=== PATIENT | female | born 1975 | race American Indian/Alaskan Native ===

== ENCOUNTER 2017-02-09 04:49 | Emergency (ER) | payer BC, OTHER ==
[2017-02-09 04:49] VITALS: BMI 35.9
[2017-02-09 05:04] VITALS: RESP 16; TEMP 98; O2SAT 98
[2017-02-09] MEDS ORDERED: Aspirin 325 mg EC Tablets PO STA (05:10)
--- NOTE | 2017-02-09 05:17 | C.PDOC ---
History Of Present Illness 42 year old obese black female presents to the ED c/o parasternal chest discomfort that is positionally and digitally reproducible. Patient also reports her pain radiates to her left arm and worsens with movement along with occasional SOB. 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 Patient denies headache, dizziness, diaphoresis, nausea, vomit, diarrhea, abdominal pain. Time Seen by Provider: 02/09/17 05:02 Chief Complaint (Nursing): Chest Pain History Per: Patient History/Exam Limitations: no limitations Onset/Duration Of Symptoms: Days Current Symptoms Are (Timing): Still Present Quality: "Pain" Associated Symptoms: Nausea Modifying Factors: None Exacerbating Factors: Movement Alleviating Factors: None Recent travel outside of the [place]: No Additional History Per: Patient Past Medical History Reviewed: Historical Data, Nursing Documentation, Vital Signs Vital Signs: Last Vital Signs Temp 98 F 02/09/17 04:58 Pulse 84 02/09/17 04:58 Resp 16 02/09/17 04:58 BP 153/94 H 02/09/17 04:58 Pulse Ox 98 02/09/17 05:20 - Medical History PMH: HTN Denies: Depression Surgical History: No Surg Hx Family History: States: Unknown Family Hx - Social History Hx Tobacco Use: No Hx Alcohol Use: No Hx Substance Use: No - Immunization History Hx Tetanus Toxoid Vaccination: No Hx Influenza Vaccination: No Hx Pneumococcal Vaccination: No Review Of Systems Constitutional: Negative for: Fever, Chills Cardiovascular: Positive for: Chest Pain. Negative for: Palpitations Respiratory: Positive for: Shortness of Breath. Negative for: Cough Gastrointestinal: Negative for: Nausea, Vomiting, Abdominal Pain Musculoskeletal: Positive for: Arm Pain Skin: Negative for: Rash Neurological: Negative for: Weakness, Numbness Physical Exam - Physical Exam Appears: Non-toxic, No Acute Distress, Other (obese black female) Skin: Normal Color, Warm, Dry Head: Atraumatic, Normacephalic Nose: No Discharge Oral Mucosa: Moist Neck: Normal ROM, Supple Chest: Symmetrical, Tenderness (digitally and positionally reproducible parasternal area) Cardiovascular: Rhythm Regular, No Murmur Respiratory: Normal Breath Sounds, No Rales, No Rhonchi, No Wheezing Gastrointestinal/Abdominal: Soft, No Tenderness, No Guarding, No Rebound Extremity: Normal ROM, No Pedal Edema, No Calf Tenderness, No Deformity, No Swelling Neurological/Psych: Oriented x3, Normal Speech Gait: Steady ED Course And Treatment - Laboratory Results Result Diagrams: 02/09/17 05:40 02/09/17 05:40 Lab Interpretation: Normal (trop neg.) ECG: Interpreted By Me, Viewed By Me ECG Rhythm: Sinus Rhythm, Nonspecific Changes ( lateral leads) Interpretation Of ECG: Flattened T waves in the lateral leads Rate From EC O2 Sat by Pulse Oximetry: 98 (On RA) Pulse Ox Interpretation: Normal - Radiology CXR: Interpreted by Me CXR Interpretation: Yes: No Acute Disease Progress Note: ice pack and motrin PO Reevaluation Time: 06:45 Reassessment Condition: Improved Medical Decision Making Medical Decision Making: Plan: * EKG * Blood work * CXR * Ecotrin 325 mg PO digitally and positionally reproducable parasternal discomfort no rash, exertion @ work (moving luggage) and normal EKG/labs/trop- c/w Costochondritis. Disposition Doctor Will See Patient In The: Office Counseled Patient/Family Regarding: Studies Performed, Diagnosis - Disposition Disposition: HOME/ ROUTINE Disposition Time: 06:46 Condition: GOOD Forms: [employer] ([place]) - Clinical Impression Clinical Impression: Chest wall discomfort - Scribe Statement The provider has reviewed the documentation as recorded by the Scribe Pierre Frias All medical record entries made by the Scribe were at my direction and personally dictated by me. I have reviewed the chart and agree that the record accurately reflects my personal performance of the history, physical exam, medical decision making, and the department course for this patient. I have also personally directed, reviewed, and agree with the discharge instructions and disposition.
[2017-02-09] MEDS ORDERED: Aspirin 325 mg EC Tablets PO ONE (05:22)
[2017-02-09 05:43] LABS: BASO # 0.1 K/uL (0.0-0.2); BASO % 0.8 % (0.0-2.0); EOS # 0.3 K/uL (0.0-0.7); EOS % 3.4 % (0.0-4.0); HEMOGLOBIN 13.3 g/dL (11.0-16.0); LYMPH # 2.3 K/uL (1.0-4.3); LYMPH % 30.4 % (20.0-40.0); MEAN CELL VOLUME 87.6 fL (81.0-99.0); MEAN CORPUSCULAR HEMOGLOBIN 30.3 pg (27.0-31.0); MEAN CORPUSCULAR HGB CONC 34.6 g/dL (33.0-37.0); MONO # 0.6 K/uL (0.0-0.8); MONO % 8.2 % (0.0-10.0); NEUT # 4.2 K/uL (1.8-7.0); NEUT % 57.2 % (50.0-75.0); RBC 4.4 Mil/uL (3.80-5.20); RED CELL DISTRIBUTION WIDTH 13.7 % (11.5-14.5); WHITE BLOOD COUNT 7.4 K/uL (4.8-10.8)
[2017-02-09 06:58] LABS: ALB/GLOB RATIO 1.2 (1.0-2.1); ALBUMIN 4.2 g/dL (3.5-5.0); ALT/SGPT 24 U/L (9-52); AST/SGOT 29 U/L (14-36); BLOOD UREA NITROGEN 12 mg/dL (7-17); CALCIUM 8.8 mg/dl (8.6-10.4); GFR AFRICAN-AMERICAN > 60; GFR NON-AFRICAN AMERICAN > 60
[2017-02-09] MEDS ORDERED: Potassium Chloride 10 mEq ER Tab PO STA (07:00)
[2017-02-09] MEDS ORDERED: Potassium Chloride 20 mEq ER Tab PO ONE (07:06)
[2017-02-09 07:09] VITALS: BP 150/90; PULSE 80
--- NOTE | 2017-02-09 08:46 | RAD ---
PROCEDURE: CHEST RADIOGRAPH, 1 VIEW HISTORY: cp COMPARISON: None available. FINDINGS: LUNGS: No evidence of focal infiltrate or consolidation in the lungs. PLEURA: No pneumothorax or pleural fluid seen. CARDIOVASCULAR: Normal. OSSEOUS STRUCTURES: Mild dextroscoliosis noted at the thoracic spine. VISUALIZED UPPER ABDOMEN: Normal. OTHER FINDINGS: None. IMPRESSION: No evidence of acute pulmonary disease.
--- NOTE | 2017-02-10 13:36 | CARD ---
APPROVED REPORT EKG Measurement Heart [id number] NM [id number] <Conclusion> Normal sinus rhythm Possible Left atrial enlargement Left ventricular hypertrophy ST & T wave abnormality, consider inferolateral ischemia Abnormal ECG
== END 2017-02-09 07:09 | disposition home or self-care (01) ==
LOC: C.ER 04:49
DX: R07.89 Other chest pain (principal); I10 Essential (primary) hypertension

== ENCOUNTER 2017-02-10 14:48 | Inpatient (IN) | payer OTHER ==
[2017-02-10 14:48] VITALS: BMI 35.9
[2017-02-10] MEDS ORDERED: Aspirin 325 mg EC Tablets PO STA (15:42)
--- NOTE | 2017-02-10 15:59 | C.PDOC ---
History Of Present Illness 42 y/o female with htn c/o sharp sternal chest pain, feels like contractions at times, that sometimes radiates to left arm, and to back, started on fri. pt sts worse with movement or in supine position and deep breath, pain better when leaning forward. Patient seen in ed yesterday for same, had blood work, ekg , cxr that were all negative and pt was discharged. Patient reports recent flu like symptoms that resolved. pt sts ibuprofen was not working for her, hasn't taken since yesterday. denies calf pain and swelling, no recent surgery, not on ocp (had tubes tied). Time Seen by Provider: 02/10/17 15:15 Chief Complaint (Nursing): Chest Pain History Per: Patient History/Exam Limitations: no limitations Onset/Duration Of Symptoms: Days Current Symptoms Are (Timing): Still Present Quality: Sharp, Squeezing (contractions) Associated Symptoms: Dyspnea. denies: Nausea, Diaphoresis, Syncope Exacerbating Factors: Exertion Alleviating Factors: Leaning Foreward Past Medical History Vital Signs: Last Vital Signs Temp 99.3 F 02/11/17 20:00 Pulse 88 02/11/17 21:48 Resp 28 H 02/11/17 21:48 BP 110/64 02/11/17 21:48 Pulse Ox 99 02/11/17 22:09 - Medical History PMH: HTN Denies: Depression Other PMH: dyslipidemia Family History: States: Unknown Family Hx - Social History Hx Tobacco Use: No Hx Alcohol Use: No Hx Substance Use: No - Immunization History Hx Tetanus Toxoid Vaccination: No Hx Influenza Vaccination: No Hx Pneumococcal Vaccination: No Review Of Systems Constitutional: Negative for: Fever, Chills Cardiovascular: Positive for: Chest Pain. Negative for: Palpitations Respiratory: Positive for: Shortness of Breath. Negative for: Cough Gastrointestinal: Negative for: Nausea, Vomiting, Abdominal Pain Skin: Negative for: Rash Neurological: Negative for: Weakness, Numbness Physical Exam - Physical Exam Additional Physical Exam Comments: Constitutional: uncomfortable Head: Normocephalic. Atraumatic. Eyes: PERRL. EOMI. ENT: Moist mucous membranes. Neck: Supple. Cardiovascular: Regular rate and rhythm. Chest: sternal Anterior chest wall tenderness Respiratory: shallow respirations. clear to auscultation GI: Soft. Nontender. Nondistended. Normoactive bowel sounds. No rebound. No guarding. Back: No CVA and no mid-line tenderness. Musculoskeletal: No tenderness or swelling of extremities. Skin: No rash. Neurologic: Alert, no focal deficit. ED Course And Treatment - Laboratory Results Result Diagrams: 02/11/17 07:40 02/11/17 07:40 ECG: Interpreted By Me, Viewed By Me ECG Rhythm: Sinus Rhythm Interpretation Of ECG: Possible left atrial enlargement. Left ventricular hypertrophy with repolarization abnormality. Compared to ECG done on 02/09/2017. patient flipped T waves and now lateral leads now upright Rate From EC (BPM ) O2 Sat by Pulse Oximetry: 99 (RA) Pulse Ox Interpretation: Normal Medical Decision Making Medical Decision Making: Progress: Blue top tube for D-Dimer hemolyzed twice and reordered Lovenox held unt ct chest dissection results evaluated [address] Valenzuela, will admit to his service. Disposition Discussed With .: Adrien Valenzuela - Disposition Disposition: HOSPITALIZED Disposition Time: 17:33 Condition: SERIOUS - Clinical Impression Clinical Impression: NSTEMI (non-ST elevated myocardial infarction), Hyponatremia - PA / IAP DISPLAYS ANALYST / Resident Statement MD/DO has reviewed & agrees with the documentation as recorded. - Scribe Statement The provider has reviewed the documentation as recorded by the Scribsammi Bhatti All medical record entries made by the Scribe were at my direction and personally dictated by me. I have reviewed the chart and agree that the record accurately reflects my personal performance of the history, physical exam, medical decision making, and the department course for this patient. I have also personally directed, reviewed, and agree with the discharge instructions and disposition. Decision To Admit - Pt Status Changed To: Hospital Disposition Of: Inpatient - Admit Certification Admit to Inpatient:: After my assessment, the patient will require hospitalization for at least two midnights. This is because of the severity of symptoms shown, intensity of services needed, and/or the medical risk in this patient being treated as an outpatient. - InPatient: Physician Admission Certification: I certify that this patient requires 2 or more midnights of care for the following reason:: cardiac work up - . Bed Request Type: Telemetry Admitting Physician: Adrien Valenzuela Patient Diagnosis: NSTEMI (non-ST elevated myocardial infarction), Hyponatremia
[2017-02-10 16:01] LABS: BASO # 0.1 K/uL (0.0-0.2); BASO % 0.9 % (0.0-2.0); EOS # 0.1 K/uL (0.0-0.7); HEMOGLOBIN 12.8 g/dL (11.0-16.0); LYMPH # 2.7 K/uL (1.0-4.3); MEAN CORPUSCULAR HEMOGLOBIN 30.2 pg (27.0-31.0); MEAN CORPUSCULAR HGB CONC 34.3 g/dL (33.0-37.0); MEAN PLATELET VOLUME 8.2 fL (7.2-11.7); MONO # 0.6 K/uL (0.0-0.8); MONO % 9.1 % (0.0-10.0); NEUT # 3.3 K/uL (1.8-7.0); RBC 4.25 Mil/uL (3.80-5.20); RED CELL DISTRIBUTION WIDTH 13.6 % (11.5-14.5); WHITE BLOOD COUNT 6.8 K/uL (4.8-10.8)
[2017-02-10 16:31] LABS: ALB/GLOB RATIO 1.2 (1.0-2.1); CALCIUM 8.3 mg/dl (8.6-10.4); GFR AFRICAN-AMERICAN > 60; GFR NON-AFRICAN AMERICAN > 60
[2017-02-10 16:37] LABS: ALT/SGPT 21 U/L (9-52); AST/SGOT 30 U/L (14-36); BLOOD UREA NITROGEN 13 mg/dL (7-17)
[2017-02-10] MEDS ORDERED: Enoxaparin 100 mg Syringe SC STA (16:49)
[2017-02-10] MEDS ORDERED: Iodixanol 320 MG/ML 100 ML BOTTLE IV ONE (18:48)
--- NOTE | 2017-02-10 20:12 | CT ---
EXAM: CT Chest With Intravenous Contrast CLINICAL HISTORY: 42 years old, female; Pain; Other: Chest radiating to back; Chest pain; Type not specified; Additional info: Cp radiating to back TECHNIQUE: Axial computed tomography images of the chest with intravenous contrast. All CT scans at this facility use one or more dose reduction techniques, viz.: automated exposure control; ma/kV adjustment per patient size (including targeted exams where dose is matched to indication; i.e. head); or iterative reconstruction technique. Coronal and sagittal reformatted images were created and reviewed. CONTRAST: 50 mL of VISIPAQUE 320 administered intravenously. COMPARISON: No relevant prior studies available. FINDINGS: Lungs: Hypoventilatory changes are noted in the dependent portion of both lungs. Pleural space: Unremarkable. No pneumothorax. No significant effusion. Heart: Unremarkable. No cardiomegaly. No significant pericardial effusion. Mediastinum: There is a small hiatal hernia Bones/joints: Straightening of the normal thoracic kyphosis. No acute fracture. No dislocation. Soft tissues: Unremarkable. Vasculature: Unremarkable. No thoracic aortic aneurysm. Lymph nodes: Unremarkable. No enlarged lymph nodes. IMPRESSION: 1. No acute findings. No evidence of aortic dissection 2. Small hiatal hernia 3. S-shaped scoliosis of the thoracolumbar spine EXAM: CT Abdomen and Pelvis With Intravenous Contrast EXAM DATE/TIME: Exam ordered 02/10/2017 6:28 PM CLINICAL HISTORY: 42 years old, female; Pain; Other: Chest radiating to back; Chest pain; Type not specified; Additional info: Cp radiating to back TECHNIQUE: Axial computed tomography images of the abdomen and pelvis with intravenous contrast. All CT scans at this facility use one or more dose reduction techniques, viz.: automated exposure control; ma/kV adjustment per patient size (including targeted exams where dose is matched to indication; i.e. head); or iterative reconstruction technique. Coronal and sagittal reformatted images were created and reviewed. CONTRAST: 50 mL of VISIPAQUE 320 administered intravenously. COMPARISON: No relevant prior studies available. FINDINGS: Lower thorax: There is a is a small hiatal hernia. ABDOMEN: Liver: The liver measures 17 cm in craniocaudal span. Gallbladder and bile ducts: Unremarkable. No calcified stones. No ductal dilation. Pancreas: Unremarkable. No mass. No ductal dilation. Spleen: Unremarkable. No splenomegaly. Adrenals: Unremarkable. No mass. Kidneys and ureters: Unremarkable. No solid mass. No hydronephrosis. Stomach and bowel: Unremarkable. No obstruction. No mucosal thickening. Appendix: No findings to suggest acute appendicitis. PELVIS: Bladder: Unremarkable. No mass. Reproductive: Unremarkable as visualized. ABDOMEN and PELVIS: Intraperitoneal space: Unremarkable. No free air. No significant fluid collection. Bones/joints: There is an S. shaped scoliosis of the thoracolumbar spine No acute fracture. No dislocation. Soft tissues: There is a small umbilical hernia containing fat. Vasculature: Unremarkable. No abdominal aortic aneurysm. Lymph nodes: Unremarkable. No enlarged lymph nodes. IMPRESSION: 1. Small hiatal hernia. 2. Hepatomegaly. 3. Small umbilical hernia containing fat.
--- NOTE | 2017-02-10 20:52 | CP.PCM.HP ---
Past Patient History - Infectious Disease Hx of Infectious Diseases: None - Tetanus Immunizations Tetanus Immunization: Unknown - Past Social History Smoking Status: Never Smoked - CARDIAC Hx Hypertension: Yes - PSYCHIATRIC Hx Depression: No Hx Substance Use: No - SURGICAL HISTORY Hx Surgeries: Yes Other/Comment: tubial ligation - ANESTHESIA Hx Anesthesia: Yes Hx Anesthesia Reactions: No Hx Malignant Hyperthermia: No Meds Allergies/Adverse Reactions: Allergies Allergy/AdvReac Type Severity Reaction Status Date / Time No Known Allergies Allergy Verified 02/10/17 15:29 Results - Vital Signs Recent Vital Signs: Last Vital Signs Temp 98.1 F 02/10/17 19:56 Pulse 88 02/10/17 20:19 Resp 22 02/10/17 20:19 BP 168/91 H 02/10/17 20:19 Pulse Ox 100 02/10/17 20:19 - Labs Result Diagrams: 02/10/17 15:57 02/10/17 15:57 Labs: Laboratory Results - last 24 hr 02/10/17 02/10/17 02/10/17 15:57 15:57 18:01 WBC 6.8 RBC 4.25 Hgb 12.8 Hct 37.4 MCV 88.0 MCH 30.2 MCHC 34.3 RDW 13.6 Plt Count 358 MPV 8.2 Neut % (Auto) 49.0 L Lymph % (Auto) 39.0 [place] % (Auto) 9.1 Eos % (Auto) 2.0 Baso % (Auto) 0.9 Neut # 3.3 Lymph # 2.7 [place] # 0.6 Eos # 0.1 Baso # 0.1 D-Dimer, Quantitative 247 H Sodium 129 L Potassium 3.3 L Chloride 98 Carbon Dioxide 25 Anion Gap 10 BUN 13 Creatinine 0.7 Est GFR ( Amer) > 60 Est GFR (Non-Af Amer) > 60 Random Glucose 117 H Calcium 8.3 L Total Bilirubin 0.9 AST 30 ALT 21 Alkaline Phosphatase 39 Troponin I 0.2040 H* Total Protein 7.4 Albumin 4.0 Globulin 3.4 Albumin/Globulin Ratio 1.2
[2017-02-10] MEDS ORDERED: Vitamins A & D Oint UD Foilpak TOP PRN (22:48)
[2017-02-10] MEDS ORDERED: Morphine 4 MG/ML VIAL IV ONE (23:41)
[2017-02-11 00:58] LABS: CK-MB 21.6 ng/mL (0.0-3.38); TROPONIN I 2.71 ng/mL (0.00-0.120)
[2017-02-11 08:05] LABS: BASO # 0.1 K/uL (0.0-0.2); BASO % 0.8 % (0.0-2.0); EOS # 0.1 K/uL (0.0-0.7); EOS % 1.9 % (0.0-4.0); HEMOGLOBIN 11.1 g/dL (11.0-16.0); LYMPH % 28.5 % (20.0-40.0); MEAN CELL VOLUME 88.6 fL (81.0-99.0); MEAN CORPUSCULAR HEMOGLOBIN 29.8 pg (27.0-31.0); MEAN CORPUSCULAR HGB CONC 33.6 g/dL (33.0-37.0); MEAN PLATELET VOLUME 7.8 fL (7.2-11.7); MONO # 0.7 K/uL (0.0-0.8); MONO % 9.8 % (0.0-10.0); NEUT # 4.2 K/uL (1.8-7.0); NRBC % 0.1 % (0.0-2.0); RBC 3.74 Mil/uL (3.80-5.20); RED CELL DISTRIBUTION WIDTH 13.8 % (11.5-14.5); WHITE BLOOD COUNT 7.1 K/uL (4.8-10.8)
[2017-02-11 08:21] LABS: ALB/GLOB RATIO 1.1 (1.0-2.1); ALBUMIN 3.2 g/dL (3.5-5.0); ALT/SGPT 32 U/L (9-52); AST/SGOT 60 U/L (14-36); BLOOD UREA NITROGEN 10 mg/dL (7-17); CALCIUM 7.3 mg/dl (8.6-10.4); GFR AFRICAN-AMERICAN > 60; GFR NON-AFRICAN AMERICAN > 60
--- NOTE | 2017-02-11 09:18 | RAD ---
HISTORY: chest pain COMPARISON: 02/09/2017 FINDINGS: LUNGS: The lungs are well inflated and clear. PLEURA: No significant pleural effusion identified, no pneumothorax apparent. CARDIOVASCULAR: Normal. OSSEOUS STRUCTURES: No significant abnormalities. VISUALIZED UPPER ABDOMEN: Normal. OTHER FINDINGS: None. IMPRESSION: No active pulmonary disease.
[2017-02-11 09:24] LABS: CK-MB 23.4 ng/mL (0.0-3.38)
[2017-02-11] MEDS ORDERED: Potassium Chloride 20 mEq ER Tab PO ONE (10:00)
[2017-02-11] MEDS ORDERED: Enoxaparin 60 mg Syringe SC SCH (10:00)
[2017-02-11] MEDS ORDERED: Enoxaparin 40 mg Syringe SC SCH (10:00)
--- NOTE | 2017-02-11 10:12 | CP.PCM.PN ---
Subjective - Date & Time of Evaluation Date of Evaluation: 02/11/17 Time of Evaluation: 10:01 - Subjective Subjective: PATIENT IS ALERT WITH FAMILY AT THE BEDSIDE COMPLAINING OF CHEST PAIN OF 7/10; DENIES SOB, NAUSEA OR VOMITING MANAGER SEARCH WAS NOTIFIED BY STAFF NURSE OF THE ELEVATED 3RD TROPONIN (7.46) STAT EKG, HEPARIN DRIP, ECHO, AND PTT, PT ORDER DR OAKLEY NOTIFIED AND REQUEST AN ICU TRANSFER PMD DR Rm GUSTAFSON WAS UPDATED ABOUT THE PATIENT CONDITION POTASSIUM WAS 3.0 MANAGER SEARCH ORDER KDUR 40MEQ PO GIVEN ONCE AND 20 MEQ IV WAS GIVEN PRIOR Objective - Vital Signs/Intake and Output Vital Signs (last 24 hours): Temp Pulse Resp BP Pulse Ox 98.1 F 67 20 110/74 96 02/11/17 08:19 02/11/17 08:19 02/11/17 08:19 02/11/17 08:19 02/11/17 08:19 - Medications Medications: Current Medications Aspirin (Aspirin) 325 mg PO DAILY JACQUES Clopidogrel Bisulfate (Plavix) 75 mg PO DAILY JACQUES Enoxaparin Sodium (Lovenox) 60 mg SC Q12 JACQUES Heparin Sodium/Sodium Chloride (Heparin 17943 Units/250ml 1/2 Normal Saline) 25 ,000 units in 250 mls @ 12.301 mls/hr IV .[id number] PRN; Protocol; 12 U/KG/HR PRN Reason: PROTOCOL Lisinopril (Zestril) 20 mg PO DAILY JACQUES Morphine Sulfate (Morphine) 2 mg IVP Q4 PRN PRN Reason: Pain, moderate (4-7) Last Admin: 02/11/17 07:13 Dose: 2 mg Pantoprazole Sodium (Protonix Inj) 40 mg IVP DAILY JACQUES Potassium Chloride (K-Dur 20 Meq Er Tab) 40 meq PO ONCE ONE Stop: 02/11/17 10:01 Vitamin A (Vitamin A & D Oint Ud Foilpak) 1 ea TOP Q6 PRN PRN Reason: Dry skin Last Admin: 02/10/17 23:22 Dose: 1 ea - Labs Labs: 02/11/17 07:40 02/11/17 07:40
[2017-02-11 10:59] LABS: INR 1.2; PROTHROMBIN TIME 13.4 SECONDS (9.7-12.2)
--- NOTE | 2017-02-11 12:29 | CP.PCM.CON ---
<Ann Marte - Last Filed: 02/11/17 12:34> History of Present Illness - History of Present Illness History of Present Illness: Critical Care Consult note for Dr. Schulz Patient is a 42 year old female w/ PMHx of HTN with complaint of intermittent sub-sternal sharp chest pain radiating to the left arm and back that began the evening of 02/07. She denies history of chest pain but reports pain was pleuritic and exertional and decreased with leaning forward. Patient took Motrin with minimal relief in pain. Patient came to ED 02/09 with blood work, XRAY and EKG that was negative and was diagnosed with costochondritis. Patient returned to the ED 02/10. Troponin was found to be of .2040, 2.71 and 7.46. CK-MB was 21.6 and 23.4. D-dimer was 247. EKG with possible left atrial enlargement. Left ventricular hypertrophy with re polarization abnormality. Patient admitted to ICU for NSTEMI. Patient states she had the flu a month ago and was given antibiotics and cough medication. Patient got a new tattoo a week ago at a familiar tattoo parlor she has visited before. Patient's last tattoo was a month ago. Social Hx: Denies tobacco, alcohol, illicit drug use, PSHx: Tubal ligation Medications: Lisinopril PMHx: HTN Family Hx: Mother with CHF Allergies: NKDA PCP: Dr. Singleton from [facility] Past Patient History - Infectious Disease Hx of Infectious Diseases: None - Tetanus Immunizations Tetanus Immunization: Unknown - Past Medical History & Family History Past Medical History?: Yes - Past Social History Smoking Status: Never Smoked - CARDIAC Hx Hypertension: Yes - MUSCULOSKELETAL/RHEUMATOLOGICAL Hx Falls: No - PSYCHIATRIC Hx Depression: No Hx Substance Use: No - SURGICAL HISTORY Hx Surgeries: Yes Hx Tubal Ligation: Yes Other/Comment: tubial ligation - ANESTHESIA Hx Anesthesia: Yes Hx Anesthesia Reactions: No Hx Malignant Hyperthermia: No Meds Allergies/Adverse Reactions: Allergies Allergy/AdvReac Type Severity Reaction Status Date / Time No Known Allergies Allergy Verified 02/10/17 15:29 - Medications Medications: Current Medications Aspirin (Aspirin) 325 mg PO DAILY [facility] Last Admin: 02/11/17 10:09 Dose: 325 mg Clopidogrel Bisulfate (Plavix) 75 mg PO DAILY [facility] Last Admin: 02/11/17 10:09 Dose: 75 mg Heparin Sodium/Sodium Chloride (Heparin 61355 Units/250ml 1/2 Normal Saline) 25 ,000 units in 250 mls @ 12.301 mls/hr IV .[id number] PRN; Protocol; 12 U/KG/HR PRN Reason: PROTOCOL Lisinopril (Zestril) 20 mg PO DAILY [facility] Last Admin: 02/11/17 10:09 Dose: 20 mg Morphine Sulfate (Morphine) 2 mg IVP Q4 PRN PRN Reason: Pain, moderate (4-7) Last Admin: 02/11/17 07:13 Dose: 2 mg Pantoprazole Sodium (Protonix Inj) 40 mg IVP DAILY [facility] Last Admin: 02/11/17 10:11 Dose: 40 mg Vitamin A (Vitamin A & D Oint Ud Foilpak) 1 ea TOP Q6 PRN PRN Reason: Dry skin Last Admin: 02/10/17 23:22 Dose: 1 ea Physical Exam - Constitutional Appears: Non-toxic - Head Exam Head Exam: NORMAL INSPECTION - Eye Exam Eye Exam: EOMI, Normal appearance - ENT Exam ENT Exam: Mucous Membranes Moist - Neck Exam Neck exam: Positive for: Full Rom, Normal Inspection. Negative for: Tenderness , Thyromegaly - Respiratory Exam Respiratory Exam: NORMAL BREATHING PATTERN. absent: Accessory Muscle Use - Cardiovascular Exam Cardiovascular Exam: REGULAR RHYTHM, +S1, +S2 Additional comments: patient has a murmur - GI/Abdominal Exam GI & Abdominal Exam: Distended, Soft. absent: Tenderness - Extremities Exam Extremities exam: Positive for: full ROM, pedal edema (2+ pitting edema at medial anterior tibial ) - Neurological Exam Neurological exam: Alert, CN II-XII Intact - Psychiatric Exam Psychiatric exam: Flat Affect - Skin Skin Exam: Dry, Intact, Warm Results - Vital Signs Recent Vital Signs: Last Vital Signs Temp 98.1 F 02/11/17 08:19 Pulse 67 02/11/17 08:19 Resp 20 02/11/17 08:19 BP 110/74 02/11/17 08:19 Pulse Ox 96 02/11/17 08:19 - Labs Result Diagrams: 02/11/17 07:40 02/11/17 07:40 Labs: Laboratory Results - last 24 hr 01/02/18 01/02/18 01/02/18 15:57 15:57 18:01 WBC 6.8 RBC 4.25 Hgb 12.8 Hct 37.4 MCV 88.0 MCH 30.2 MCHC 34.3 RDW 13.6 Plt Count 358 MPV 8.2 Neut % (Auto) 49.0 L Lymph % (Auto) 39.0 [place] % (Auto) 9.1 Eos % (Auto) 2.0 Baso % (Auto) 0.9 Neut # 3.3 Lymph # 2.7 [place] # 0.6 Eos # 0.1 Baso # 0.1 PT INR D-Dimer, Quantitative 247 H Sodium 129 L Potassium 3.3 L Chloride 98 Carbon Dioxide 25 Anion Gap 10 BUN 13 Creatinine 0.7 Est GFR ( Amer) > 60 Est GFR (Non-Af Amer) > 60 Random Glucose 117 H Calcium 8.3 L Total Bilirubin 0.9 AST 30 ALT 21 Alkaline Phosphatase 39 Total Creatine Kinase CK-MB (Mass) Troponin I 0.2040 H* Total Protein 7.4 Albumin 4.0 Globulin 3.4 Albumin/Globulin Ratio 1.2 02/11/17 02/11/17 02/11/17 00:22 07:40 07:40 WBC 7.1 RBC 3.74 L Hgb 11.1 Hct 33.1 L MCV 88.6 MCH 29.8 MCHC 33.6 RDW 13.8 Plt Count 290 MPV 7.8 Neut % (Auto) 59.0 Lymph % (Auto) 28.5 [place] % (Auto) 9.8 Eos % (Auto) 1.9 Baso % (Auto) 0.8 Neut # 4.2 Lymph # 2.0 [place] # 0.7 Eos # 0.1 Baso # 0.1 PT INR D-Dimer, Quantitative Sodium 132 Potassium 3.0 L Chloride 101 Carbon Dioxide 28 Anion Gap 7 L BUN 10 Creatinine 0.6 L Est GFR ( Amer) > 60 Est GFR (Non-Af Amer) > 60 Random Glucose 92 Calcium 7.3 L Total Bilirubin 0.7 AST 60 H D ALT 32 Alkaline Phosphatase 35 L Total Creatine Kinase 456 H 561 H CK-MB (Mass) 21.6 H 23.4 H Troponin I 2.7100 H* 7.4600 H* Total Protein 6.1 L Albumin 3.2 L Globulin 2.9 Albumin/Globulin Ratio 1.1 02/11/17 10:50 WBC RBC Hgb Hct MCV MCH MCHC RDW Plt Count MPV Neut % (Auto) Lymph % (Auto) [place] % (Auto) Eos % (Auto) Baso % (Auto) Neut # Lymph # [place] # Eos # Baso # PT 13.4 H INR 1.2 D-Dimer, Quantitative Sodium Potassium Chloride Carbon Dioxide Anion Gap BUN Creatinine Est GFR ( Amer) Est GFR (Non-Af Amer) Random Glucose Calcium Total Bilirubin AST ALT Alkaline Phosphatase Total Creatine Kinase CK-MB (Mass) Troponin I Total Protein Albumin Globulin Albumin/Globulin Ratio Assessment & Plan - Assessment and Plan (Free Text) Assessment: 42F with PMH of HTN presents with chest pain, was found to have elevated troponin I Neuro Pain: Morphine 2mg IVP Q4H PRN Cardio: elevated troponin I 02/10/17 15:57 0.2040 02/11/17 00:22 2.7100 02/11/17 07:40 7.4600 02/10/17 18:01 d-dimer 247 CT dissection negative for aneurysm negative for PE EKG EKG f/u Echo ASA 325mg PO QD Plavix 75mg PO QD Lovenox 60mg SC Q12H, discontinued Heparin Drip 12 u/kg/hr Lisinopril 20mg POQD Cardio Consult: Dr. Cope Pulm / CXR MSK Dry skin Vitamin A&D ointment Top Q6H PRN Prophylaxis: Protonix 40mg IVP QD Lovenox 60mg SC Q12H, discontinued Heparin Drip 12 u/kg/hr - Date & Time Date: 02/11/17 Time: 12:37 <Conrad Schulz - Last Filed: 02/11/17 16:38> Meds - Medications Medications: Current Medications Aspirin (Aspirin) 325 mg PO DAILY [facility] Last Admin: 02/11/17 10:09 Dose: 325 mg Clopidogrel Bisulfate (Plavix) 75 mg PO DAILY [facility] Last Admin: 02/11/17 10:09 Dose: 75 mg Heparin Sodium/Sodium Chloride (Heparin 40013 Units/250ml 1/2 Normal Saline) 25 ,000 units in 250 mls @ 12.301 mls/hr IV .[id number] PRN; Protocol; 12 U/KG/HR PRN Reason: PROTOCOL Last Admin: 02/11/17 13:27 Dose: 12 u/kg/hr, 12.301 mls/hr Lisinopril (Zestril) 20 mg PO DAILY [facility] Last Admin: 02/11/17 10:09 Dose: 20 mg Morphine Sulfate (Morphine) 2 mg IVP Q4 PRN PRN Reason: Pain, moderate (4-7) Last Admin: 02/11/17 15:13 Dose: 2 mg Pantoprazole Sodium (Protonix Inj) 40 mg IVP DAILY [facility] Last Admin: 02/11/17 10:11 Dose: 40 mg Vitamin A (Vitamin A & D Oint Ud Foilpak) 1 ea TOP Q6 PRN PRN Reason: Dry skin Last Admin: 02/10/17 23:22 Dose: 1 ea Results - Vital Signs Recent Vital Signs: Last Vital Signs Temp 99.0 F 02/11/17 16:00 Pulse 86 02/11/17 16:00 Resp 25 H 02/11/17 16:00 BP 114/57 L 02/11/17 15:45 Pulse Ox 100 02/11/17 16:00 - Labs Result Diagrams: 02/11/17 07:40 02/11/17 07:40 Labs: Laboratory Results - last 24 hr 02/10/17 02/10/17 02/11/17 15:57 18:01 00:22 WBC RBC Hgb Hct MCV MCH MCHC RDW Plt Count MPV Neut % (Auto) Lymph % (Auto) [place] % (Auto) Eos % (Auto) Baso % (Auto) Neut # Lymph # [place] # Eos # Baso # PT INR D-Dimer, Quantitative 247 H Sodium 129 L Potassium 3.3 L Chloride 98 Carbon Dioxide 25 Anion Gap 10 BUN 13 Creatinine Est GFR ( Amer) Est GFR (Non-Af Amer) Random Glucose Calcium Total Bilirubin AST 30 ALT 21 Alkaline Phosphatase 39 Total Creatine Kinase 456 H CK-MB (Mass) 21.6 H Troponin I 0.2040 H* 2.7100 H* Total Protein Albumin Globulin Albumin/Globulin Ratio 02/11/17 02/11/17 02/11/17 07:40 07:40 10:50 WBC 7.1 RBC 3.74 L Hgb 11.1 Hct 33.1 L MCV 88.6 MCH 29.8 MCHC 33.6 RDW 13.8 Plt Count 290 MPV 7.8 Neut % (Auto) 59.0 Lymph % (Auto) 28.5 [place] % (Auto) 9.8 Eos % (Auto) 1.9 Baso % (Auto) 0.8 Neut # 4.2 Lymph # 2.0 [place] # 0.7 Eos # 0.1 Baso # 0.1 PT 13.4 H INR 1.2 D-Dimer, Quantitative Sodium 132 Potassium 3.0 L Chloride 101 Carbon Dioxide 28 Anion Gap 7 L BUN 10 Creatinine 0.6 L Est GFR ( Amer) > 60 Est GFR (Non-Af Amer) > 60 Random Glucose 92 Calcium 7.3 L Total Bilirubin 0.7 AST 60 H D ALT 32 Alkaline Phosphatase 35 L Total Creatine Kinase 561 H CK-MB (Mass) 23.4 H Troponin I 7.4600 H* Total Protein 6.1 L Albumin 3.2 L Globulin 2.9 Albumin/Globulin Ratio 1.1 Attending/Attestation - Attestation I have personally seen and examined this patient.: Yes I have fully participated in the care of the patient.: Yes I have reviewed all pertinent clinical information: Yes Notes (Text): 02/11/17 16:35 patient seen and examined in the intensive care unit. Case discussed with house staff in the morning. 42-year-old female admitted for chest pain and elevated troponins Possible cardiac cath tomorrow Continue IV heparin, Plavix, aspirin Echocardiogram Seen by cardiology
[2017-02-11] MEDS: Heparin25000 units/250ml 1/2NS 25,000 UNITS/250 ML BAG IV PRN (13:27)
[2017-02-11] MEDS ORDERED: Sodium Chloride 0.9% 1,000 ML IV SCH (16:45)
[2017-02-11 17:52] LABS: CK-MB 14.6 ng/mL (0.0-3.38)
[2017-02-11 17:54] LABS: TROPONIN I 4.65 ng/mL (0.00-0.120)
--- NOTE | 2017-02-11 19:10 | CP.PCM.CON ---
History of Present Illness - History of Present Illness History of Present Illness: I was asked to see patient by Dr Rm Valenzuela. Patient is a 42 year old female with PMH HTN, hypercholesterolemia who presents with chest pain. Symptoms have been intermittent since 4 days go, and is described as cramping substernal chest pressure. The patient states symptoms are worse with exertion and improve with rest. She presented with inital cardiac enzyme negative but subsequently became positive. Patient was transferred to ICU with intermittent chest pain and troponin of 7. The patient states pain is improved. Family is present at the bedside. Review of Systems - Constitutional Constitutional: absent: As Per HPI, Anorexia, Chills, Daytime Sleepiness, Excessive Sweating, Fatigue, Fever, Frequent Falls, Headache, Increased Appetite , Lethargy, Malaise, Night Sweats, Snoring, Sleep Apnea, Weight Gain, Weight Loss, Weakness, Other - EENT Eyes: absent: As Per HPI, Blind Spots, Blurred Vision, Change in Vision, Decreased Night Vision, Diplopia, Discharge, Dry Eye, Exophthalmos, Floaters, Irritation, Itchy Eyes, Loss of Peripheral Vision, Pain, Photophobia, Requires Corrective Lenses, Sees Flashes, Spots in Vision, Tunnel Vision, Other Visual Disturbances, Loss of Vision, Other Ears: absent: As Per HPI, Decreased Hearing, Ear Discharge, Ear Pain, Tinnitus, Abnormal Hearing, Disequilibrium, Dizziness, Other Nose/Mouth/Throat: absent: As Per HPI, Epistaxis, Nasal Congestion, Nasal Discharge, Nasal Obstruction, Nasal Trauma, Nose Pain, Post Nasal Drip, Sinus Pain, Sinus Pressure, Bleeding Gums, Change in Voice, Dental Pain, Dry Mouth, Dysphagia, Halitosis, Hoarsness, Lip Swelling, Mouth Lesions, Mouth Pain, Odynophagia, Sore Throat, Throat Swelling, Tongue Swelling, Facial Pain, Neck Pain, Neck Mass, Other - Breasts Breasts: absent: As Per HPI, Change in Shape, Mass, Pain, Nipple Discharge, Nipple Inversion, Skin Changes, Swelling, Other - Cardiovascular Cardiovascular: Chest Pain, Dyspnea - Respiratory Respiratory: Dyspnea - Gastrointestinal Gastrointestinal: absent: As Per HPI, Abdominal Pain, Belching, Bloating, Change in Bowel Habits, Change in Stool Character, Coffee Ground Emesis, Constipation, Cramping, Diarrhea, Dyspepsia, Dysphagia, Early Satiety, Excessive Flatus, Fecal Incontinence, Heartburn, Hematemesis, Hematochezia, Loose Stools, Melena, Nausea, Odynophagia, Temesmus, Vomiting, Other - Genitourinary Genitourinary: absent: As Per HPI, Change in Urinary Stream, Difficulty Urinating, Dysuria, Flank Pain, Hematuria, Pyuria, Nocturia, Urinary Incontinence, Urinary Frequency, Urinary Hesitance, Urinary Urgency, Voiding Freq/Small Amts, Freq UTI, Hx Renal/Bladder Calculi, Hx /Renal Surgery, Bladder Distension, Other - Musculoskeletal Musculoskeletal: absent: As Per HPI, Abnormal Gait, Arthralgias, Atrophy, Back Pain, Deformity, Joint Swelling, Limited Range of Motion, Loss of Height, Muscle Cramps, Muscle Weakness, Myalgias, Neck Pain, Numbness, Radiating Pain into Limb, Stiffness, Tingling, Other - Integumentary Integumentary: absent: As Per HPI, Acne, Alopecia, Bleeding Lesions, Change in Hair, Change in Nails, Change in Pigmentation, Changing Lesions, Dry Skin, Erythema, Furuncle, Hirsutism, Lesions, New Lesions, Non-Healing Lesions, Photosensitivity, Pruritus, Rash, Skin Pain, Skin Ulcer, Sores, Striae, Swelling , Unusual Bruising, Wounds, Jaundice, Other - Neurological Neurological: absent: As Per HPI, Abnormal Gait, Abnormal Hearing, Abnormal Movements, Abnormal Speech, Behavioral Changes, Burning Sensations, Confusion, Convulsions, Disequilibrium, Dizziness, Numbness, Focal Weakness, Frequent Falls , Headaches, Lack of Coordination, Loss of Vision, Memory Loss, Paresthesias, Radicular Pain, Restless Legs, Sensory Deficit, Syncope, Tingling, Tremor, Vertigo, Weakness, Other Visual Disturbances, Other - Psychiatric Psychiatric: absent: As Per HPI, Abnormal Sleep Pattern, Anhedonia, Anxiety, Auditory Hallucinations, Behavioral Changes, Change in Appetite, Change in Libido, Confusion, Depression, Difficulty Concentrating, Hallucinations, Homicidal Ideation, Hopelessness, Irritability, Memory Loss, Mood Swings, Panic Attacks, Paranoia, Suicidal Ideation, Visual Hallucinations, Tactile Hallucinations, Other - Endocrine Endocrine: absent: As Per HPI, Change in Body Appearance, Change in Libido, Cold Intolorance, Deepening of Voice, Excessive Sweating, Fatigue, Flushing, Heat Intolorance, Increase in Ring/Shoe/Hat Size, Palpitations, Polydipsia, Polyphagia, Polyuria, Other - Hematologic/Lymphatic Hematologic: absent: As Per HPI, Easy Bleeding, Easy Bruising, Lymphadenopathy, Other Past Patient History - Infectious Disease Hx of Infectious Diseases: None - Tetanus Immunizations Tetanus Immunization: Unknown - Past Medical History & Family History Past Medical History?: Yes - Past Social History Smoking Status: Never Smoked - CARDIAC Hx Hypertension: Yes - MUSCULOSKELETAL/RHEUMATOLOGICAL Hx Falls: No - PSYCHIATRIC Hx Depression: No Hx Substance Use: No - SURGICAL HISTORY Hx Surgeries: Yes Hx Tubal Ligation: Yes Other/Comment: tubial ligation - ANESTHESIA Hx Anesthesia: Yes Hx Anesthesia Reactions: No Hx Malignant Hyperthermia: No Meds Allergies/Adverse Reactions: Allergies Allergy/AdvReac Type Severity Reaction Status Date / Time No Known Allergies Allergy Verified 02/10/17 15:29 - Medications Medications: Current Medications Aspirin (Aspirin) 325 mg PO DAILY [facility] Last Admin: 02/11/17 10:09 Dose: 325 mg Clopidogrel Bisulfate (Plavix) 75 mg PO DAILY [facility] Last Admin: 02/11/17 10:09 Dose: 75 mg Heparin Sodium/Sodium Chloride (Heparin 17286 Units/250ml 1/2 Normal Saline) 25 ,000 units in 250 mls @ 12.301 mls/hr IV .[id number] PRN; Protocol; 12 U/KG/HR PRN Reason: PROTOCOL Last Admin: 02/11/17 13:27 Dose: 12 u/kg/hr, 12.301 mls/hr Lisinopril (Zestril) 20 mg PO DAILY [facility] Last Admin: 02/11/17 10:09 Dose: 20 mg Morphine Sulfate (Morphine) 2 mg IVP Q4 PRN PRN Reason: Pain, moderate (4-7) Last Admin: 02/11/17 15:13 Dose: 2 mg Pantoprazole Sodium (Protonix Inj) 40 mg IVP DAILY [facility] Last Admin: 02/11/17 10:11 Dose: 40 mg Vitamin A (Vitamin A & D Oint Ud Foilpak) 1 ea TOP Q6 PRN PRN Reason: Dry skin Last Admin: 02/10/17 23:22 Dose: 1 ea Physical Exam - Constitutional Appears: Non-toxic - Head Exam Head Exam: NORMAL INSPECTION - Eye Exam Eye Exam: Normal appearance - ENT Exam ENT Exam: Mucous Membranes Moist - Neck Exam Neck exam: Positive for: Full Rom - Respiratory Exam Respiratory Exam: NORMAL BREATHING PATTERN - Cardiovascular Exam Cardiovascular Exam: REGULAR RHYTHM - GI/Abdominal Exam GI & Abdominal Exam: Normal Bowel Sounds - Rectal Exam Rectal Exam: Deferred - Extremities Exam Extremities exam: Negative for: pedal edema - Back Exam Back exam: NORMAL INSPECTION - Neurological Exam Neurological exam: Alert, Oriented x3 - Psychiatric Exam Psychiatric exam: Normal Affect - Skin Skin Exam: Normal Color Results - Vital Signs Recent Vital Signs: Last Vital Signs Temp 99.0 F 02/11/17 16:00 Pulse 84 02/11/17 17:40 Resp 28 H 02/11/17 17:40 BP 119/73 02/11/17 16:45 Pulse Ox 100 02/11/17 17:40 - Labs Result Diagrams: 02/11/17 07:40 02/11/17 07:40 Labs: Laboratory Results - last 24 hr 02/11/17 02/11/17 02/11/17 00:22 07:40 07:40 WBC 7.1 RBC 3.74 L Hgb 11.1 Hct 33.1 L MCV 88.6 MCH 29.8 MCHC 33.6 RDW 13.8 Plt Count 290 MPV 7.8 Neut % (Auto) 59.0 Lymph % (Auto) 28.5 [place] % (Auto) 9.8 Eos % (Auto) 1.9 Baso % (Auto) 0.8 Neut # 4.2 Lymph # 2.0 [place] # 0.7 Eos # 0.1 Baso # 0.1 PT INR Sodium 132 Potassium 3.0 L Chloride 101 Carbon Dioxide 28 Anion Gap 7 L BUN 10 Creatinine 0.6 L Est GFR ( Amer) > 60 Est GFR (Non-Af Amer) > 60 Random Glucose 92 Hemoglobin A1c Calcium 7.3 L Total Bilirubin 0.7 AST 60 H D ALT 32 Alkaline Phosphatase 35 L Total Creatine Kinase 456 H 561 H CK-MB (Mass) 21.6 H 23.4 H Troponin I 2.7100 H* 7.4600 H* Total Protein 6.1 L Albumin 3.2 L Globulin 2.9 Albumin/Globulin Ratio 1.1 Triglycerides Cholesterol LDL Cholesterol Direct HDL Cholesterol 02/11/17 02/11/17 02/11/17 10:50 17:18 17:18 WBC RBC Hgb Hct MCV MCH MCHC RDW Plt Count MPV Neut % (Auto) Lymph % (Auto) [place] % (Auto) Eos % (Auto) Baso % (Auto) Neut # Lymph # [place] # Eos # Baso # PT 13.4 H INR 1.2 Sodium Potassium Chloride Carbon Dioxide Anion Gap BUN Creatinine Est GFR ( Amer) Est GFR (Non-Af Amer) Random Glucose Hemoglobin A1c 5.8 Calcium Total Bilirubin AST ALT Alkaline Phosphatase Total Creatine Kinase 426 H CK-MB (Mass) 14.6 H Troponin I 4.6500 H* Total Protein Albumin Globulin Albumin/Globulin Ratio Triglycerides 138 Cholesterol 177 LDL Cholesterol Direct 119 HDL Cholesterol 37 - EKG Data EKG Interpreted by: Myself EKG shows normal: Sinus rhythm Assessment & Plan (1) NSTEMI (non-ST elevated myocardial infarction) Assessment and Plan: patient is on heparin drip. She will require cardiac cathterization for further management. Pain has improved. I have discussed risks and benefits with the patient and family. She perfers transfer for cardiac cathterization given likelihood of needing coronary intervention. NPO after midnight and will transfer in am. maintain ASA therapy. Status: Acute (2) HTN (hypertension) Assessment and Plan: blood pressure control Status: Acute
--- NOTE | 2017-02-11 19:31 | CP.PCM.PN ---
Subjective - Date & Time of Evaluation Date of Evaluation: 02/11/17 Time of Evaluation: 14:40 - Subjective Subjective: clinically same Objective - Vital Signs/Intake and Output Vital Signs (last 24 hours): Temp Pulse Resp BP Pulse Ox 99.0 F 84 28 H 119/73 100 02/11/17 16:00 02/11/17 17:40 02/11/17 17:40 02/11/17 16:45 02/11/17 17:40 Intake and Output: 02/11/17 02/12/17 18:59 06:59 Intake Total 861.5 Output Total 500 Balance 361.5 - Medications Medications: Current Medications Aspirin (Ecotrin) 81 [facility] Clopidogrel Bisulfate (Plavix) 75 mg PO DAILY [facility] Last Admin: 02/11/17 10:09 Dose: 75 mg Famotidine (Pepcid) 20 mg PO BID [facility] Heparin Sodium/Sodium Chloride (Heparin 25457 Units/250ml 1/2 Normal Saline) 25 ,000 units in 250 mls @ 12.301 mls/hr IV .[id number] PRN; Protocol; 12 U/KG/HR PRN Reason: PROTOCOL Last Admin: 02/11/17 13:27 Dose: 12 u/kg/hr, 12.301 mls/hr Lisinopril (Zestril) 20 mg PO DAILY [facility] Last Admin: 02/11/17 10:09 Dose: 20 mg Morphine Sulfate (Morphine) 2 mg IVP Q4 PRN PRN Reason: Pain, moderate (4-7) Last Admin: 02/11/17 15:13 Dose: 2 mg Rosuvastatin Calcium (Crestor) 10 mg PO [facility] Vitamin A (Vitamin A & D Oint Ud Foilpak) 1 ea TOP Q6 PRN PRN Reason: Dry skin Last Admin: 02/10/17 23:22 Dose: 1 ea - Labs Labs: 02/11/17 07:40 02/11/17 07:40 PT 13.4 SECONDS (9.7-12.2) H 02/11/17 10:50 INR 1.2 02/11/17 10:50 - Constitutional Appears: Well - Head Exam Head Exam: ATRAUMATIC, NORMAL INSPECTION, NORMOCEPHALIC - Eye Exam Eye Exam: EOMI, Normal appearance, PERRL Pupil Exam: NORMAL ACCOMODATION, PERRL - ENT Exam ENT Exam: Mucous Membranes Moist, Normal Exam - Neck Exam Neck Exam: Full ROM, Normal Inspection. absent: Lymphadenopathy - Respiratory Exam Respiratory Exam: Decreased Breath Sounds - Cardiovascular Exam Cardiovascular Exam: +S1, +S2 - GI/Abdominal Exam GI & Abdominal Exam: Soft, Diminished Bowel Sounds - Rectal Exam Rectal Exam: Deferred
[2017-02-12 06:37] LABS: BASO # 0.1 K/uL (0.0-0.2); BASO % 0.9 % (0.0-2.0); EOS # 0.3 K/uL (0.0-0.7); HEMOGLOBIN 11.6 g/dL (11.0-16.0); LYMPH # 2.2 K/uL (1.0-4.3); LYMPH % 34.6 % (20.0-40.0); MEAN CELL VOLUME 89.6 fL (81.0-99.0); MEAN CORPUSCULAR HEMOGLOBIN 30.2 pg (27.0-31.0); MEAN CORPUSCULAR HGB CONC 33.7 g/dL (33.0-37.0); MEAN PLATELET VOLUME 8.1 fL (7.2-11.7); MONO # 0.5 K/uL (0.0-0.8); MONO % 7.8 % (0.0-10.0); NEUT # 3.4 K/uL (1.8-7.0); NEUT % 52.7 % (50.0-75.0); NRBC % 0.1 % (0.0-2.0); RBC 3.83 Mil/uL (3.80-5.20); RED CELL DISTRIBUTION WIDTH 13.7 % (11.5-14.5); WHITE BLOOD COUNT 6.4 K/uL (4.8-10.8)
[2017-02-12 06:51] LABS: ALB/GLOB RATIO 1.1 (1.0-2.1); ALBUMIN 3.3 g/dL (3.5-5.0); ALT/SGPT 27 U/L (9-52); AST/SGOT 40 U/L (14-36); BLOOD UREA NITROGEN 11 mg/dL (7-17); CALCIUM 7.7 mg/dl (8.6-10.4); GFR AFRICAN-AMERICAN > 60; GFR NON-AFRICAN AMERICAN > 60; MAGNESIUM 1.8 mg/dL (1.6-2.3)
[2017-02-12 07:01] LABS: CK-MB 5.25 ng/mL (0.0-3.38)
--- NOTE | 2017-02-12 07:37 | CP.CCUPN ---
<EsutardoAnn - Last Filed: 02/12/17 11:24> CCU Subjective - Physician Review Subjective (Free Text): 02/12/17 07:[address] Corrales Patient seen and examined at bedside to be transferred for cardiac cath in the morning per Dr. Cope. Patient denies fever, chills, shortness of breath. Patient admits to discomfort in her chest. Patient's troponin's are downtrending. Patient continues to have chest pain, not relieved with morphine. Patient sent to [facility] [place] 11:[address] Cope 02/12/17 11:22 Critical Care Time Spent (in minutes): 35 CCU Objective - Vital Signs / Intake & Output Vital Signs (Last 4 hours): Vital Signs Pulse Resp BP Pulse Ox 02/12/17 06:00 71 18 100 02/12/17 05:45 66 20 113/70 100 02/12/17 05:00 79 21 100 02/12/17 04:45 82 21 123/74 100 02/12/17 04:00 66 17 100 02/12/17 03:45 73 20 111/72 100 Intake and Output (Last 8hrs): Intake & Output 02/11/17 02/12/17 02/12/17 22:59 06:59 14:59 Intake Total 498.4 198.4 Output Total 0 600 Balance 498.4 -401.6 Intake: Intake, IV Amount 98.4 98.4 Right Antecubital 98.4 98.4 Oral 400 100 Output: Urine 0 600 Urine, Voided 0 600 Other: # Bowel Movements 0 - Physical Exam Head: Positive for: Atraumatic, Normocephalic Extroacular Muscles: Positive for: EOMI Mouth: Positive for: Moist Mucous Membranes Abdomen: Positive for: Distention, Normal Bowel Sounds. Negative for: Tenderness - Medications Active Medications: Active Medications Generic Name Dose Route Start Last Admin Trade Name Freq PRN Reason Stop Dose Admin Aspirin 81 mg 02/11/17 19:14 Ecotrin PO DAILY [facility] Clopidogrel Bisulfate 75 mg 02/11/17 10:00 02/11/17 10:09 Plavix PO 75 mg DAILY [facility] Administration Famotidine 20 mg 02/12/17 10:00 Pepcid PO BID [facility] Heparin Sodium/Sodium Chloride 25,000 units in 250 mls @ 12.301 mls/hr 10:00 02/11/17 13:27 Heparin 87751 Units/250ml 1/2 Normal Saline IV 12 u/kg/hr .[id number] PRN 12.301 mls/hr PROTOCOL Administration Protocol 12 U/KG/HR Lisinopril 20 mg 02/11/17 10:00 02/11/17 10:09 Zestril PO 20 mg DAILY [facility] Administration Morphine Sulfate 2 mg 02/10/17 20:03 02/11/17 22:15 Morphine IVP 2 mg Q4 PRN Administration Pain, moderate (4-7) Rosuvastatin Calcium 10 mg 02/11/17 22:00 02/11/17 22:20 Crestor PO 10 mg HS JACQUES Administration Vitamin A 1 ea 02/10/17 22:48 02/10/17 23:22 Vitamin A & D Oint Ud Foilpak TOP 1 ea Q6 PRN Administration Dry skin - Patient Studies Lab Studies: Lab Studies 02/12/17 02/12/17 02/11/17 Range/Units 06:20 06:18 19:52 WBC 6.4 (4.8-10.8) K/uL RBC 3.83 (3.80-5.20) Mil/uL Hgb 11.6 (11.0-16.0) g/dL Hct 34.4 (34.0-47.0) % MCV 89.6 (81.0-99.0) fL MCH 30.2 (27.0-31.0) pg MCHC 33.7 (33.0-37.0) g/dL RDW 13.7 (11.5-14.5) % Plt Count 298 (130-400) K/uL MPV 8.1 (7.2-11.7) fL Neut % (Auto) 52.7 (50.0-75.0) % Lymph % (Auto) 34.6 (20.0-40.0) % [place] % (Auto) 7.8 (0.0-10.0) % Eos % (Auto) 4.0 (0.0-4.0) % Baso % (Auto) 0.9 (0.0-2.0) % Neut # 3.4 (1.8-7.0) K/uL Lymph # 2.2 (1.0-4.3) K/uL [place] # 0.5 (0.0-0.8) K/uL Eos # 0.3 (0.0-0.7) K/uL Baso # 0.1 (0.0-0.2) K/uL PT (9.7-12.2) SECONDS INR APTT 44 H (21-34) SECONDS Sodium 131 L (132-148) mmol/L Potassium 3.7 (3.6-5.2) mmol/L Chloride 103 (98-107) mmol/L Carbon Dioxide 25 (22-30) mmol/L Anion Gap 7 L (10-20) BUN 11 (7-17) mg/dL Creatinine 0.6 L (0.7-1.2) mg/dL Est GFR ( Amer) > 60 Est GFR (Non-Af Amer) > 60 Random Glucose 87 (65-105) mg/dL Hemoglobin A1c (4.2-6.5) % Calcium 7.7 L (8.6-10.4) mg/dl Phosphorus 3.0 (2.5-4.5) mg/dL Magnesium 1.8 (1.6-2.3) mg/dL Total Bilirubin 0.6 (0.2-1.3) mg/dL AST 40 H D (14-36) U/L ALT 27 (9-52) U/L Alkaline Phosphatase 38 (38-126) U/L Total Creatine Kinase 279 H (30-135) U/L CK-MB (Mass) 5.25 H (0.0-3.38) ng/mL Troponin I 4.0100 H* (0.00-0.120) ng/mL Total Protein 6.4 (6.3-8.3) g/dL Albumin 3.3 L (3.5-5.0) g/dL Globulin 3.1 (2.2-3.9) gm/dL Albumin/Globulin Ratio 1.1 (1.0-2.1) Triglycerides (0-149) mg/dL Cholesterol (0-199) mg/dL LDL Cholesterol Direct (0-129) mg/dL HDL Cholesterol (30-70) mg/dL 02/11/17 02/11/17 02/11/17 Range/Units 17:18 17:18 10:50 WBC (4.8-10.8) K/uL RBC (3.80-5.20) Mil/uL Hgb (11.0-16.0) g/dL Hct (34.0-47.0) % MCV (81.0-99.0) fL MCH (27.0-31.0) pg MCHC (33.0-37.0) g/dL RDW (11.5-14.5) % Plt Count (130-400) K/uL MPV (7.2-11.7) fL Neut % (Auto) (50.0-75.0) % Lymph % (Auto) (20.0-40.0) % [place] % (Auto) (0.0-10.0) % Eos % (Auto) (0.0-4.0) % Baso % (Auto) (0.0-2.0) % Neut # (1.8-7.0) K/uL Lymph # (1.0-4.3) K/uL [place] # (0.0-0.8) K/uL Eos # (0.0-0.7) K/uL Baso # (0.0-0.2) K/uL PT 13.4 H (9.7-12.2) SECONDS INR 1.2 APTT (21-34) SECONDS Sodium (132-148) mmol/L Potassium (3.6-5.2) mmol/L Chloride (98-107) mmol/L Carbon Dioxide (22-30) mmol/L Anion Gap (10-20) BUN (7-17) mg/dL Creatinine (0.7-1.2) mg/dL Est GFR ( Amer) Est GFR (Non-Af Amer) Random Glucose (65-105) mg/dL Hemoglobin A1c 5.8 (4.2-6.5) % Calcium (8.6-10.4) mg/dl Phosphorus (2.5-4.5) mg/dL Magnesium (1.6-2.3) mg/dL Total Bilirubin (0.2-1.3) mg/dL AST (14-36) U/L ALT (9-52) U/L Alkaline Phosphatase (38-126) U/L Total Creatine Kinase 426 H (30-135) U/L CK-MB (Mass) 14.6 H (0.0-3.38) ng/mL Troponin I 4.6500 H* (0.00-0.120) ng/mL Total Protein (6.3-8.3) g/dL Albumin (3.5-5.0) g/dL Globulin (2.2-3.9) gm/dL Albumin/Globulin Ratio (1.0-2.1) Triglycerides 138 (0-149) mg/dL Cholesterol 177 (0-199) mg/dL LDL Cholesterol Direct 119 (0-129) mg/dL HDL Cholesterol 37 (30-70) mg/dL 02/11/17 02/11/17 Range/Units 07:40 07:40 WBC 7.1 (4.8-10.8) K/uL RBC 3.74 L (3.80-5.20) Mil/uL Hgb 11.1 (11.0-16.0) g/dL Hct 33.1 L (34.0-47.0) % MCV 88.6 (81.0-99.0) fL MCH 29.8 (27.0-31.0) pg MCHC 33.6 (33.0-37.0) g/dL RDW 13.8 (11.5-14.5) % Plt Count 290 (130-400) K/uL MPV 7.8 (7.2-11.7) fL Neut % (Auto) 59.0 (50.0-75.0) % Lymph % (Auto) 28.5 (20.0-40.0) % [place] % (Auto) 9.8 (0.0-10.0) % Eos % (Auto) 1.9 (0.0-4.0) % Baso % (Auto) 0.8 (0.0-2.0) % Neut # 4.2 (1.8-7.0) K/uL Lymph # 2.0 (1.0-4.3) K/uL [place] # 0.7 (0.0-0.8) K/uL Eos # 0.1 (0.0-0.7) K/uL Baso # 0.1 (0.0-0.2) K/uL PT (9.7-12.2) SECONDS INR APTT (21-34) SECONDS Sodium 132 (132-148) mmol/L Potassium 3.0 L (3.6-5.2) mmol/L Chloride 101 (98-107) mmol/L Carbon Dioxide 28 (22-30) mmol/L Anion Gap 7 L (10-20) BUN 10 (7-17) mg/dL Creatinine 0.6 L (0.7-1.2) mg/dL Est GFR ( Amer) > 60 Est GFR (Non-Af Amer) > 60 Random Glucose 92 (65-105) mg/dL Hemoglobin A1c (4.2-6.5) % Calcium 7.3 L (8.6-10.4) mg/dl Phosphorus (2.5-4.5) mg/dL Magnesium (1.6-2.3) mg/dL Total Bilirubin 0.7 (0.2-1.3) mg/dL AST 60 H D (14-36) U/L ALT 32 (9-52) U/L Alkaline Phosphatase 35 L (38-126) U/L Total Creatine Kinase 561 H (30-135) U/L CK-MB (Mass) 23.4 H (0.0-3.38) ng/mL Troponin I 7.4600 H* (0.00-0.120) ng/mL Total Protein 6.1 L (6.3-8.3) g/dL Albumin 3.2 L (3.5-5.0) g/dL Globulin 2.9 (2.2-3.9) gm/dL Albumin/Globulin Ratio 1.1 (1.0-2.1) Triglycerides (0-149) mg/dL Cholesterol (0-199) mg/dL LDL Cholesterol Direct (0-129) mg/dL HDL Cholesterol (30-70) mg/dL Laboratory Results - last 24 hr 02/11/17 02/11/17 02/11/17 07:40 07:40 10:50 WBC 7.1 RBC 3.74 L Hgb 11.1 Hct 33.1 L MCV 88.6 MCH 29.8 MCHC 33.6 RDW 13.8 Plt Count 290 MPV 7.8 Neut % (Auto) 59.0 Lymph % (Auto) 28.5 [place] % (Auto) 9.8 Eos % (Auto) 1.9 Baso % (Auto) 0.8 Neut # 4.2 Lymph # 2.0 [place] # 0.7 Eos # 0.1 Baso # 0.1 PT 13.4 H INR 1.2 APTT Sodium 132 Potassium 3.0 L Chloride 101 Carbon Dioxide 28 Anion Gap 7 L BUN 10 Creatinine 0.6 L Est GFR ( Amer) > 60 Est GFR (Non-Af Amer) > 60 Random Glucose 92 Hemoglobin A1c Calcium 7.3 L Phosphorus Magnesium Total Bilirubin 0.7 AST 60 H D ALT 32 Alkaline Phosphatase 35 L Total Creatine Kinase 561 H CK-MB (Mass) 23.4 H Troponin I 7.4600 H* Total Protein 6.1 L Albumin 3.2 L Globulin 2.9 Albumin/Globulin Ratio 1.1 Triglycerides Cholesterol LDL Cholesterol Direct HDL Cholesterol 02/11/17 02/11/17 02/11/17 17:18 17:18 19:52 WBC RBC Hgb Hct MCV MCH MCHC RDW Plt Count MPV Neut % (Auto) Lymph % (Auto) [place] % (Auto) Eos % (Auto) Baso % (Auto) Neut # Lymph # [place] # Eos # Baso # PT INR APTT 44 H Sodium Potassium Chloride Carbon Dioxide Anion Gap BUN Creatinine Est GFR ( Amer) Est GFR (Non-Af Amer) Random Glucose Hemoglobin A1c 5.8 Calcium Phosphorus Magnesium Total Bilirubin AST ALT Alkaline Phosphatase Total Creatine Kinase 426 H CK-MB (Mass) 14.6 H Troponin I 4.6500 H* Total Protein Albumin Globulin Albumin/Globulin Ratio Triglycerides 138 Cholesterol 177 LDL Cholesterol Direct 119 HDL Cholesterol 37 02/12/17 02/12/17 06:18 06:20 WBC 6.4 RBC 3.83 Hgb 11.6 Hct 34.4 MCV 89.6 MCH 30.2 MCHC 33.7 RDW 13.7 Plt Count 298 MPV 8.1 Neut % (Auto) 52.7 Lymph % (Auto) 34.6 [place] % (Auto) 7.8 Eos % (Auto) 4.0 Baso % (Auto) 0.9 Neut # 3.4 Lymph # 2.2 [place] # 0.5 Eos # 0.3 Baso # 0.1 PT INR APTT Sodium 131 L Potassium 3.7 Chloride 103 Carbon Dioxide 25 Anion Gap 7 L BUN 11 Creatinine 0.6 L Est GFR ( Amer) > 60 Est GFR (Non-Af Amer) > 60 Random Glucose 87 Hemoglobin A1c Calcium 7.7 L Phosphorus 3.0 Magnesium 1.8 Total Bilirubin 0.6 AST 40 H D ALT 27 Alkaline Phosphatase 38 Total Creatine Kinase 279 H CK-MB (Mass) 5.25 H Troponin I 4.0100 H* Total Protein 6.4 Albumin 3.3 L Globulin 3.1 Albumin/Globulin Ratio 1.1 Triglycerides Cholesterol LDL Cholesterol Direct HDL Cholesterol EKG/Cardiology Studies: Cardiology / EKG Studies 02/11/17 09:40 EKG [ELECTROCARDIOGRAM] Stat Comment: Mode Of Transportation: BED Reason For Exam: chest pain and elevated troponin Critical Care Progress Note - Nutrition Nutrition: Nutrition Category Date Time Status Heart Healthy Diet [DIET] Diets 02/11/17 Breakfast Active NPO Diet [DIET] Diets 02/12/17 Dinner Active Assessment/Plan - Assessment and Plan (Free Text) Assessment: 42F with PMH of HTN presents with chest pain, was found to have elevated troponin I, NSTEMI Neuro Pain: Morphine 2mg IVP Q4H PRN Cardio: elevated troponin I 02/10/17 15:57 0.2040 02/11/17 00:22 2.7100 02/11/17 07:40 7.4600 02/11/17 17:18 4.6500 02/12/17 06:20 4.0100 02/10/17 18:01 d-dimer 247 CT dissection negative for aneurysm negative for PE EKG NSTEMI f/u Echo normal EF, f/u final read ASA 325mg PO QD Plavix 75mg PO QD Lovenox 60mg SC Q12H, discontinued Heparin Drip 12 u/kg/hr Lisinopril 20mg POQD Cardio Consult: Dr. Cope 02/11 Dr. Cope patient requires cardiac cath for further management. Patient prefers transfer for cardiac catheterization. NPO after mdnight and to transfer in AM. Continue to maintain ASA therapy. Pulm 02/10 CXR no active disease Endo A1c 5.8 lipid 02/12/17 TG 138, Cholesterol 177, LDL 119, HDL 37 MSK Dry skin Vitamin A&D ointment Top Q6H PRN Prophylaxis: Protonix 40mg IVP QD Lovenox 60mg SC Q12H, discontinued Heparin Drip 12 u/kg/hr 02/12/17 patient transferred to [facility] [place] for PCI with Dr. Cope discussed with Dr. Savanna Marte DO PGY1 - Date & Time Date: 02/12/17 Time: 07:37 <Keshav Corrales - Last Filed: 02/12/17 16:12> CCU Objective - Vital Signs / Intake & Output Intake and Output (Last 8hrs): Intake & Output 02/12/17 02/12/17 02/12/17 06:59 14:59 22:59 Intake Total 198.4 367.6 Output Total 600 400 Balance -401.6 -32.4 Weight 225 lb 15.581 oz Intake: IV 250 Intake, IV Amount 98.4 67.6 Right Antecubital 98.4 67.6 Oral 100 50 Output: Urine 600 400 Urine, Voided 600 400 Other: # Voids Urine, Voided 0 # Bowel Movements 0 - Medications Active Medications: Active Medications Generic Name Dose Route Start Last Admin Trade Name Freq PRN Reason Stop Dose Admin Aspirin 81 mg 02/11/17 19:14 02/12/17 10:20 Ecotrin PO 81 mg DAILY [facility] Administration Clopidogrel Bisulfate 75 mg 02/11/17 10:00 02/12/17 10:19 Plavix PO 75 mg DAILY [facility] Administration Famotidine 20 mg 02/12/17 10:00 02/12/17 10:20 Pepcid PO 20 mg BID [facility] Administration Heparin Sodium/Sodium Chloride 25,000 units in 250 mls @ 12.301 mls/hr 10:00 02/12/17 10:24 Heparin 98100 Units/250ml 1/2 Normal Saline IV 12 u/kg/hr .[id number] PRN 12.301 mls/hr PROTOCOL Administration Protocol 12 U/KG/HR Lisinopril 20 mg 02/11/17 10:00 02/12/17 10:19 Zestril PO 20 mg DAILY [facility] Administration Morphine Sulfate 2 mg 02/10/17 20:03 02/12/17 10:05 Morphine IVP 2 mg Q4 PRN Administration Pain, moderate (4-7) Nitroglycerin 0.4 mg 02/12/17 11:16 02/12/17 11:29 Nitrostat Sl Tab SL 0.4 mg Q5M PRN Administration chest pain Rosuvastatin Calcium 10 mg 02/11/17 22:00 02/11/17 22:20 Crestor PO 10 mg HS JACQUES Administration Vitamin A 1 ea 02/10/17 22:48 02/10/17 23:22 Vitamin A & D Oint Ud Foilpak TOP 1 ea Q6 PRN Administration Dry skin - Patient Studies Lab Studies: Microbiology Studies 02/11/17 10:44 MRSA Culture (Admit) - Final Naris MRSA NOT DETECTED Lab Studies 02/12/17 02/12/17 02/12/17 Range/Units 07:48 06:20 06:18 WBC 6.4 (4.8-10.8) K/uL RBC 3.83 (3.80-5.20) Mil/uL Hgb 11.6 (11.0-16.0) g/dL Hct 34.4 (34.0-47.0) % MCV 89.6 (81.0-99.0) fL MCH 30.2 (27.0-31.0) pg MCHC 33.7 (33.0-37.0) g/dL RDW 13.7 (11.5-14.5) % Plt Count 298 (130-400) K/uL MPV 8.1 (7.2-11.7) fL Neut % (Auto) 52.7 (50.0-75.0) % Lymph % (Auto) 34.6 (20.0-40.0) % [place] % (Auto) 7.8 (0.0-10.0) % Eos % (Auto) 4.0 (0.0-4.0) % Baso % (Auto) 0.9 (0.0-2.0) % Neut # 3.4 (1.8-7.0) K/uL Lymph # 2.2 (1.0-4.3) K/uL [place] # 0.5 (0.0-0.8) K/uL Eos # 0.3 (0.0-0.7) K/uL Baso # 0.1 (0.0-0.2) K/uL APTT 64 H D (21-34) SECONDS Sodium 131 L (132-148) mmol/L Potassium 3.7 (3.6-5.2) mmol/L Chloride 103 (98-107) mmol/L Carbon Dioxide 25 (22-30) mmol/L Anion Gap 7 L (10-20) BUN 11 (7-17) mg/dL Creatinine 0.6 L (0.7-1.2) mg/dL Est GFR ( Amer) > 60 Est GFR (Non-Af Amer) > 60 Random Glucose 87 (65-105) mg/dL Hemoglobin A1c (4.2-6.5) % Calcium 7.7 L (8.6-10.4) mg/dl Phosphorus 3.0 (2.5-4.5) mg/dL Magnesium 1.8 (1.6-2.3) mg/dL Total Bilirubin 0.6 (0.2-1.3) mg/dL AST 40 H D (14-36) U/L ALT 27 (9-52) U/L Alkaline Phosphatase 38 (38-126) U/L Total Creatine Kinase 279 H (30-135) U/L CK-MB (Mass) 5.25 H (0.0-3.38) ng/mL Troponin I 4.0100 H* (0.00-0.120) ng/mL Total Protein 6.4 (6.3-8.3) g/dL Albumin 3.3 L (3.5-5.0) g/dL Globulin 3.1 (2.2-3.9) gm/dL Albumin/Globulin Ratio 1.1 (1.0-2.1) Triglycerides (0-149) mg/dL Cholesterol (0-199) mg/dL LDL Cholesterol Direct (0-129) mg/dL HDL Cholesterol (30-70) mg/dL 02/11/17 02/11/17 02/11/17 Range/Units 19:52 17:18 17:18 WBC (4.8-10.8) K/uL RBC (3.80-5.20) Mil/uL Hgb (11.0-16.0) g/dL Hct (34.0-47.0) % MCV (81.0-99.0) fL MCH (27.0-31.0) pg MCHC (33.0-37.0) g/dL RDW (11.5-14.5) % Plt Count (130-400) K/uL MPV (7.2-11.7) fL Neut % (Auto) (50.0-75.0) % Lymph % (Auto) (20.0-40.0) % [place] % (Auto) (0.0-10.0) % Eos % (Auto) (0.0-4.0) % Baso % (Auto) (0.0-2.0) % Neut # (1.8-7.0) K/uL Lymph # (1.0-4.3) K/uL [place] # (0.0-0.8) K/uL Eos # (0.0-0.7) K/uL Baso # (0.0-0.2) K/uL APTT 44 H (21-34) SECONDS Sodium (132-148) mmol/L Potassium (3.6-5.2) mmol/L Chloride (98-107) mmol/L Carbon Dioxide (22-30) mmol/L Anion Gap (10-20) BUN (7-17) mg/dL Creatinine (0.7-1.2) mg/dL Est GFR ( Amer) Est GFR (Non-Af Amer) Random Glucose (65-105) mg/dL Hemoglobin A1c 5.8 (4.2-6.5) % Calcium (8.6-10.4) mg/dl Phosphorus (2.5-4.5) mg/dL Magnesium (1.6-2.3) mg/dL Total Bilirubin (0.2-1.3) mg/dL AST (14-36) U/L ALT (9-52) U/L Alkaline Phosphatase (38-126) U/L Total Creatine Kinase 426 H (30-135) U/L CK-MB (Mass) 14.6 H (0.0-3.38) ng/mL Troponin I 4.6500 H* (0.00-0.120) ng/mL Total Protein (6.3-8.3) g/dL Albumin (3.5-5.0) g/dL Globulin (2.2-3.9) gm/dL Albumin/Globulin Ratio (1.0-2.1) Triglycerides 138 (0-149) mg/dL Cholesterol 177 (0-199) mg/dL LDL Cholesterol Direct 119 (0-129) mg/dL HDL Cholesterol 37 (30-70) mg/dL Laboratory Results - last 24 hr 02/11/17 02/11/17 02/11/17 17:18 17:18 19:52 WBC RBC Hgb Hct MCV MCH MCHC RDW Plt Count MPV Neut % (Auto) Lymph % (Auto) [place] % (Auto) Eos % (Auto) Baso % (Auto) Neut # Lymph # [place] # Eos # Baso # APTT 44 H Sodium Potassium Chloride Carbon Dioxide Anion Gap BUN Creatinine Est GFR ( Amer) Est GFR (Non-Af Amer) Random Glucose Hemoglobin A1c 5.8 Calcium Phosphorus Magnesium Total Bilirubin AST ALT Alkaline Phosphatase Total Creatine Kinase 426 H CK-MB (Mass) 14.6 H Troponin I 4.6500 H* Total Protein Albumin Globulin Albumin/Globulin Ratio Triglycerides 138 Cholesterol 177 LDL Cholesterol Direct 119 HDL Cholesterol 37 02/12/17 02/12/17 02/12/17 06:18 06:20 07:48 WBC 6.4 RBC 3.83 Hgb 11.6 Hct 34.4 MCV 89.6 MCH 30.2 MCHC 33.7 RDW 13.7 Plt Count 298 MPV 8.1 Neut % (Auto) 52.7 Lymph % (Auto) 34.6 [place] % (Auto) 7.8 Eos % (Auto) 4.0 Baso % (Auto) 0.9 Neut # 3.4 Lymph # 2.2 [place] # 0.5 Eos # 0.3 Baso # 0.1 APTT 64 H D Sodium 131 L Potassium 3.7 Chloride 103 Carbon Dioxide 25 Anion Gap 7 L BUN 11 Creatinine 0.6 L Est GFR ( Amer) > 60 Est GFR (Non-Af Amer) > 60 Random Glucose 87 Hemoglobin A1c Calcium 7.7 L Phosphorus 3.0 Magnesium 1.8 Total Bilirubin 0.6 AST 40 H D ALT 27 Alkaline Phosphatase 38 Total Creatine Kinase 279 H CK-MB (Mass) 5.25 H Troponin I 4.0100 H* Total Protein 6.4 Albumin 3.3 L Globulin 3.1 Albumin/Globulin Ratio 1.1 Triglycerides Cholesterol LDL Cholesterol Direct HDL Cholesterol Critical Care Progress Note - Nutrition Nutrition: Nutrition Category Date Time Status NPO Diet [DIET] Diets 02/12/17 Dinner Active Attending/Attestation - Attestation I have personally seen and examined this patient.: Yes I have fully participated in the care of the patient.: Yes I have reviewed all pertinent clinical information: Yes Notes (Text): 02/12/17 15:53 I have seen and examined the patient. Medical records, lab studies, and imaging were reviewed by me and a management plan was formulated on multidisciplinary rounds with resident Dr. Parra. I agree with their documented assessment and plan. Patient going to [facility] for cardiac cath. Patient was having mild chest pain, gave SL nitro with relief. Critical Care Time 35 minutes. Multi-disciplinary rounds were performed with house staff, nursing, speech therapy, respiratory therapy, pharmacy and nutrition with integrated input from the primary team/attending and other consulting services. The documented time is cumulative and includes review of patient data/exams/labs/chart review and examination of the patient on rounds and throughout the day; time is exclusive of any procedures or teaching time.
[2017-02-12] MEDS: Heparin25000 units/250ml 1/2NS 25,000 UNITS/250 ML BAG IV PRN (10:24)
--- NOTE | 2017-02-12 14:45 | CARD ---
APPROVED REPORT EKG Measurement Heart [id number] <Conclusion> Normal sinus rhythm Nonspecific T wave abnormality Prolonged QT Abnormal ECG
--- NOTE | 2017-02-12 14:52 | CARD ---
APPROVED REPORT EKG Measurement Heart [id number] <Conclusion> Normal sinus rhythm Normal ECG
--- NOTE | 2017-02-12 19:25 | CP.PCM.PN ---
Subjective - Date & Time of Evaluation Date of Evaluation: 02/12/17 Time of Evaluation: 14:00 - Subjective Subjective: clinically same Objective - Vital Signs/Intake and Output Vital Signs (last 24 hours): Temp Pulse Resp BP Pulse Ox 98.0 F 71 23 118/80 100 02/12/17 11:25 02/12/17 11:00 02/12/17 11:00 02/12/17 10:45 02/12/17 11:25 Intake and Output: 02/12/17 02/13/17 18:59 06:59 Intake Total 367.6 Output Total 400 Balance -32.4 - Medications Medications: Current Medications Aspirin (Ecotrin) 81 mg PO DAILY [facility] Last Admin: 02/12/17 10:20 Dose: 81 mg Famotidine (Pepcid) 20 mg PO BID [facility] Last Admin: 02/12/17 17:34 Dose: Not Given Lisinopril (Zestril) 20 mg PO DAILY [facility] Last Admin: 02/12/17 10:19 Dose: 20 mg Morphine Sulfate (Morphine) 2 mg IVP Q4 PRN PRN Reason: Pain, moderate (4-7) Last Admin: 02/12/17 10:05 Dose: 2 mg Nitroglycerin (Nitrostat Sl Tab) 0.4 mg SL Q5M PRN PRN Reason: chest pain Last Admin: 02/12/17 11:29 Dose: 0.4 mg Rosuvastatin Calcium (Crestor) 10 mg PO HS [facility] Last Admin: 02/11/17 22:20 Dose: 10 mg Ticagrelor (Brilinta) 90 mg PO BID [facility] Vitamin A (Vitamin A & D Oint Ud Foilpak) 1 ea TOP Q6 PRN PRN Reason: Dry skin Last Admin: 02/10/17 23:22 Dose: 1 ea - Labs Labs: 02/12/17 06:18 02/12/17 06:20 PT 13.4 SECONDS (9.7-12.2) H 02/11/17 10:50 INR 1.2 02/11/17 10:50 APTT 64 SECONDS (21-34) H D 02/12/17 07:48
[2017-02-13 06:39] LABS: BASO # 0.1 K/uL (0.0-0.2); BASO % 0.7 % (0.0-2.0); EOS # 0.3 K/uL (0.0-0.7); EOS % 3.9 % (0.0-4.0); HEMOGLOBIN 11.6 g/dL (11.0-16.0); LYMPH # 1.7 K/uL (1.0-4.3); LYMPH % 22.3 % (20.0-40.0); MEAN CORPUSCULAR HEMOGLOBIN 30.1 pg (27.0-31.0); MEAN CORPUSCULAR HGB CONC 33.8 g/dL (33.0-37.0); MONO # 0.7 K/uL (0.0-0.8); MONO % 9.7 % (0.0-10.0); NEUT # 4.7 K/uL (1.8-7.0); NEUT % 63.4 % (50.0-75.0); NRBC % 0.1 % (0.0-2.0); RBC 3.86 Mil/uL (3.80-5.20); RED CELL DISTRIBUTION WIDTH 13.6 % (11.5-14.5); WHITE BLOOD COUNT 7.5 K/uL (4.8-10.8)
--- NOTE | 2017-02-13 07:04 | CARD ---
APPROVED REPORT EKG Measurement Heart [id number] <Conclusion> Normal sinus rhythm Possible Left atrial enlargement Left ventricular hypertrophy with repolarization abnormality Abnormal ECG
--- NOTE | 2017-02-13 07:22 | CARD ---
APPROVED REPORT EXAM: Two-dimensional and M-mode echocardiogram with Doppler and color Doppler. Other Information Quality : TDSRhythm : INDICATION Chest Pain Non STEMI Elevated troponin 2D DIMENSIONS IVSd1.1 (0.7-1.1cm)LVDd4.0 (3.9-5.9cm) PWd1.1 (0.7-1.1cm)LVDs2.9 (2.5-4.0cm) FS (%) 28.9 %LVEF (%)56.0 (>50%) M-Mode DIMENSIONS Left Atrium (MM)3.02 (2.5-4.0cm)Aortic Root2.99 (2.2-3.7cm) Aortic Cusp Exc.2.10 (1.5-2.0cm) Mitral Valve MV E Ynqykdfm913.8cm/sMV A Vcfuiwtv10.8cm/sE/A ratio1.4 TDI E/Lateral E'0.0E/Medial E'0.0 Tricuspid Valve TR Peak Xruhnggs419fh/sTR Peak Gr.[id number] LEFT VENTRICLE The left ventricle is normal size. The left ventricular function is normal. The left ventricular ejection fraction is within the normal range. There is normal LV segmental wall motion. The left ventricular diastolic function is normal. RIGHT VENTRICLE The right ventricle is normal size. The right ventricular systolic function is normal. ATRIA The left atrium size is normal. The right atrium size is normal. AORTIC VALVE The aortic valve is normal in structure. No aortic regurgitation is present. There is no aortic valvular stenosis. There is no aortic valvular vegetation. MITRAL VALVE The mitral valve is normal in structure. There is no mitral valve stenosis. Mitral regurgitation is mild. TRICUSPID VALVE The tricuspid valve is normal in structure. There is mild tricuspid regurgitation. There is no tricuspid valve stenosis. PULMONIC VALVE The pulmonary valve is normal in structure. GREAT VESSELS The aortic root is normal in size. <Conclusion> The left ventricular function is normal. The left ventricular ejection fraction is within the normal range. The right ventricular systolic function is normal. The aortic valve is normal in structure. Mitral regurgitation is mild. There is mild tricuspid regurgitation.
[2017-02-13 07:32] LABS: ALBUMIN 3.2 g/dL (3.5-5.0); ALT/SGPT 29 U/L (9-52); AST/SGOT 45 U/L (14-36); BLOOD UREA NITROGEN 10 mg/dL (7-17); CALCIUM 7.6 mg/dl (8.6-10.4); CK-MB 10.7 ng/mL (0.0-3.38); GFR AFRICAN-AMERICAN > 60; GFR NON-AFRICAN AMERICAN > 60
[2017-02-13 07:49] LABS: MAGNESIUM 1.9 mg/dL (1.6-2.3)
--- NOTE | 2017-02-13 08:28 | CP.PCM.PN ---
Subjective - Date & Time of Evaluation Date of Evaluation: 02/13/17 Time of Evaluation: 08:10 - Subjective Subjective: patient has pleuritic chest pain. Objective - Vital Signs/Intake and Output Vital Signs (last 24 hours): Temp Pulse Resp BP Pulse Ox 98.4 F 78 25 H 123/68 100 02/13/17 08:00 02/13/17 08:00 02/13/17 08:00 02/13/17 07:45 02/13/17 08:00 Intake and Output: 02/13/17 02/13/17 06:59 18:59 Intake Total 250 0 Output Total 300 Balance -50 0 - Medications Medications: Current Medications Aspirin (Ecotrin) 81 mg PO DAILY [facility] Last Admin: 02/12/17 10:20 Dose: 81 mg Famotidine (Pepcid) 20 mg PO BID [facility] Last Admin: 02/12/17 17:34 Dose: Not Given Lisinopril (Zestril) 20 mg PO DAILY [facility] Last Admin: 02/12/17 10:19 Dose: 20 mg Metoprolol Succinate (Toprol Xl) 25 mg PO DAILY [facility] Morphine Sulfate (Morphine) 2 mg IVP Q4 PRN PRN Reason: Pain, moderate (4-7) Last Admin: 02/12/17 10:05 Dose: 2 mg Nitroglycerin (Nitrostat Sl Tab) 0.4 mg SL Q5M PRN PRN Reason: chest pain Last Admin: 02/12/17 23:56 Dose: 0.4 mg Rosuvastatin Calcium (Crestor) 10 mg PO [facility] Last Admin: 02/12/17 23:55 Dose: 10 mg Ticagrelor (Brilinta) 90 mg PO BID [facility] Vitamin A (Vitamin A & D Oint Ud Foilpak) 1 ea TOP Q6 PRN PRN Reason: Dry skin Last Admin: 02/10/17 23:22 Dose: 1 ea - Labs Labs: 02/13/17 06:28 02/13/17 06:30 PT 13.4 SECONDS (9.7-12.2) H 02/11/17 10:50 INR 1.2 02/11/17 10:50 APTT 64 SECONDS (21-34) H D 02/12/17 07:48 - Constitutional Appears: Non-toxic - Head Exam Head Exam: NORMAL INSPECTION - Eye Exam Eye Exam: Normal appearance - ENT Exam ENT Exam: Mucous Membranes Moist - Neck Exam Neck Exam: Full ROM - Respiratory Exam Respiratory Exam: NORMAL BREATHING PATTERN - Cardiovascular Exam Cardiovascular Exam: REGULAR RHYTHM - GI/Abdominal Exam GI & Abdominal Exam: Normal Bowel Sounds - Rectal Exam Rectal Exam: Deferred - Extremities Exam Extremities Exam: absent: Pedal Edema - Back Exam Back Exam: NORMAL INSPECTION - Neurological Exam Neurological Exam: Alert - Psychiatric Exam Psychiatric exam: Normal Affect - Skin Skin Exam: Normal Color Assessment and Plan (1) NSTEMI (non-ST elevated myocardial infarction) Assessment & Plan: s/p PCI of the left circumflex artery. patient is doing well. has pleuritic chest pain. conitnue ASA/brilinta. add Indocin for pericarditic pain. add Toprol. can transfer to telemetry. stable for dc in am Status: Acute (2) HTN (hypertension) Assessment & Plan: blood pressure control Status: Acute
--- NOTE | 2017-02-13 08:51 | CP.CCUPN ---
CCU Subjective - Physician Review Subjective (Free Text): 02/12/17 07:[address] Corrales Patient seen and examined at bedside to be transferred for cardiac cath in the morning per Dr. Cope. Patient denies fever, chills, shortness of breath. Patient admits to discomfort in her chest. Patient's troponin's are downtrending. Patient continues to have chest pain, not relieved with morphine. [place] [facility] [place] Cope 02/12/17 11:22 CCU Objective - Vital Signs / Intake & Output Vital Signs (Last 4 hours): Vital Signs Temp Pulse Resp BP Pulse Ox 02/13/17 08:00 98.4 F 78 25 H 100 02/13/17 07:45 76 25 H 123/68 99 02/13/17 07:00 74 21 98 02/13/17 06:45 68 21 111/65 98 02/13/17 06:00 77 21 100 02/13/17 05:45 69 20 122/67 100 02/13/17 05:00 73 23 100 02/13/17 04:45 69 19 130/75 100 Intake and Output (Last 8hrs): Intake & Output 02/12/17 02/13/17 02/13/17 22:59 06:59 14:59 Intake Total 250 120 Output Total 300 Balance -50 120 Weight 242 lb 8 oz Intake: Intake, IV Amount 0 Right Antecubital 0 Oral 250 120 Output: Urine 300 Urine, Voided 300 Other: # Voids Urine, Voided 0 0 # Bowel Movements 0 0 - Physical Exam Head: Positive for: Atraumatic, Normocephalic Extroacular Muscles: Positive for: EOMI Mouth: Positive for: Moist Mucous Membranes Abdomen: Positive for: Distention, Normal Bowel Sounds. Negative for: Tenderness - Medications Active Medications: Active Medications Generic Name Dose Route Start Last Admin Trade Name Freq PRN Reason Stop Dose Admin Aspirin 81 mg 02/11/17 19:14 02/12/17 10:20 Ecotrin PO 81 mg DAILY [facility] Administration Famotidine 20 mg 02/12/17 10:00 02/12/17 17:34 Pepcid PO Not Given BID [facility] Indomethacin 25 mg 02/13/17 10:00 Indocin PO TID [facility] Lisinopril 20 mg 02/11/17 10:00 02/12/17 10:19 Zestril PO 20 mg DAILY [facility] Administration Metoprolol Succinate 25 mg 02/13/17 10:00 Toprol Xl PO DAILY [facility] Morphine Sulfate 2 mg 02/10/17 20:03 02/12/17 10:05 Morphine IVP 2 mg Q4 PRN Administration Pain, moderate (4-7) Nitroglycerin 0.4 mg 02/12/17 11:16 02/12/17 23:56 Nitrostat Sl Tab SL 0.4 mg Q5M PRN Administration chest pain Rosuvastatin Calcium 10 mg 02/11/17 22:00 02/12/17 23:55 Crestor PO 10 mg HS [facility] Administration Ticagrelor 90 mg 02/13/17 10:00 Brilinta PO BID [facility] Vitamin A 1 ea 02/10/17 22:48 02/10/17 23:22 Vitamin A & D Oint Ud Foilpak TOP 1 ea Q6 PRN Administration Dry skin - Patient Studies Lab Studies: Microbiology Studies 02/11/17 10:44 MRSA Culture (Admit) - Final Naris MRSA NOT DETECTED Lab Studies 02/13/17 02/13/17 Range/Units 06:30 06:28 WBC 7.5 (4.8-10.8) K/uL RBC 3.86 (3.80-5.20) Mil/uL Hgb 11.6 (11.0-16.0) g/dL Hct 34.4 (34.0-47.0) % MCV 89.0 (81.0-99.0) fL MCH 30.1 (27.0-31.0) pg MCHC 33.8 (33.0-37.0) g/dL RDW 13.6 (11.5-14.5) % Plt Count 300 (130-400) K/uL MPV 8.0 (7.2-11.7) fL Neut % (Auto) 63.4 (50.0-75.0) % Lymph % (Auto) 22.3 (20.0-40.0) % Barry % (Auto) 9.7 (0.0-10.0) % Eos % (Auto) 3.9 (0.0-4.0) % Baso % (Auto) 0.7 (0.0-2.0) % Neut # 4.7 (1.8-7.0) K/uL Lymph # 1.7 (1.0-4.3) K/uL Barry # 0.7 (0.0-0.8) K/uL Eos # 0.3 (0.0-0.7) K/uL Baso # 0.1 (0.0-0.2) K/uL Sodium 134 (132-148) mmol/L Potassium 3.7 (3.6-5.2) mmol/L Chloride 102 (98-107) mmol/L Carbon Dioxide 26 (22-30) mmol/L Anion Gap 9 L (10-20) BUN 10 (7-17) mg/dL Creatinine 0.7 (0.7-1.2) mg/dL Est GFR ( Amer) > 60 Est GFR (Non-Af Amer) > 60 Random Glucose 88 (65-105) mg/dL Calcium 7.6 L (8.6-10.4) mg/dl Phosphorus 3.4 (2.5-4.5) mg/dL Magnesium 1.9 (1.6-2.3) mg/dL Total Bilirubin 0.6 (0.2-1.3) mg/dL AST 45 H (14-36) U/L ALT 29 (9-52) U/L Alkaline Phosphatase 30 L D (38-126) U/L Total Creatine Kinase 289 H (30-135) U/L CK-MB (Mass) 10.7 H (0.0-3.38) ng/mL Troponin I 4.9100 H* (0.00-0.120) ng/mL Total Protein 6.4 (6.3-8.3) g/dL Albumin 3.2 L (3.5-5.0) g/dL Globulin 3.2 (2.2-3.9) gm/dL Albumin/Globulin Ratio 1.0 (1.0-2.1) Laboratory Results - last 24 hr 02/13/17 02/13/17 06:28 06:30 WBC 7.5 RBC 3.86 Hgb 11.6 Hct 34.4 MCV 89.0 MCH 30.1 MCHC 33.8 RDW 13.6 Plt Count 300 MPV 8.0 Neut % (Auto) 63.4 Lymph % (Auto) 22.3 Barry % (Auto) 9.7 Eos % (Auto) 3.9 Baso % (Auto) 0.7 Neut # 4.7 Lymph # 1.7 Barry # 0.7 Eos # 0.3 Baso # 0.1 Sodium 134 Potassium 3.7 Chloride 102 Carbon Dioxide 26 Anion Gap 9 L BUN 10 Creatinine 0.7 Est GFR ( Amer) > 60 Est GFR (Non-Af Amer) > 60 Random Glucose 88 Calcium 7.6 L Phosphorus 3.4 Magnesium 1.9 Total Bilirubin 0.6 AST 45 H ALT 29 Alkaline Phosphatase 30 L D Total Creatine Kinase 289 H CK-MB (Mass) 10.7 H Troponin I 4.9100 H* Total Protein 6.4 Albumin 3.2 L Globulin 3.2 Albumin/Globulin Ratio 1.0 EKG/Cardiology Studies: Cardiology / EKG Studies 02/12/17 23:55 EKG [ELECTROCARDIOGRAM] Stat Comment: Mode Of Transportation: PORTABLE Reason For Exam: chest pain 02/13/17 06:00 ELECTROCARDIOGRAM Routine Comment: Mode Of Transportation: PORTABLE Reason For Exam: post coronary stent, intermittent chest pain Critical Care Progress Note - Nutrition Nutrition: Nutrition Category Date Time Status Heart Healthy Diet [DIET] Diets 02/13/17 Breakfast Active Assessment/Plan - Assessment and Plan (Free Text) Assessment: 95% occlusion of left circumflex. 180mg Bril[place] [facility] [place]. to start on Brilanta 90mg PO BID tomorrow 02/13
[2017-02-13] MEDS: Metoprolol Succinate 25 mg XL Tab PO SCH (10:23)
--- NOTE | 2017-02-13 17:25 | CP.PCM.PN ---
Subjective - Date & Time of Evaluation Date of Evaluation: 02/13/17 Time of Evaluation: 14:00 - Subjective Subjective: clinically same Objective - Vital Signs/Intake and Output Vital Signs (last 24 hours): Temp Pulse Resp BP Pulse Ox 98.4 F 69 27 H 125/75 99 02/13/17 08:00 02/13/17 15:00 02/13/17 15:00 02/13/17 14:46 02/13/17 14:46 Intake and Output: 02/13/17 02/13/17 06:59 18:59 Intake Total 250 220 Output Total 300 Balance -50 220 - Medications Medications: Current Medications Aspirin (Ecotrin) 81 mg PO DAILY [facility] Last Admin: 02/13/17 10:23 Dose: 81 mg Famotidine (Pepcid) 20 mg PO BID [facility] Last Admin: 02/13/17 10:23 Dose: 20 mg Indomethacin (Indocin) 25 mg PO TID [facility] Last Admin: 02/13/17 15:02 Dose: Not Given Lisinopril (Zestril) 20 mg PO DAILY [facility] Last Admin: 02/13/17 10:23 Dose: 20 mg Metoprolol Succinate (Toprol Xl) 25 mg PO DAILY [facility] Last Admin: 02/13/17 10:23 Dose: 25 mg Morphine Sulfate (Morphine) 2 mg IVP Q4 PRN PRN Reason: Pain, moderate (4-7) Last Admin: 02/12/17 10:05 Dose: 2 mg Nitroglycerin (Nitrostat Sl Tab) 0.4 mg SL Q5M PRN PRN Reason: chest pain Last Admin: 02/12/17 23:56 Dose: 0.4 mg Rosuvastatin Calcium (Crestor) 10 mg PO [facility] Last Admin: 02/12/17 23:55 Dose: 10 mg Ticagrelor (Brilinta) 90 mg PO BID [facility] Last Admin: 02/13/17 11:21 Dose: Not Given Vitamin A (Vitamin A & D Oint Ud Foilpak) 1 ea TOP Q6 PRN PRN Reason: Dry skin Last Admin: 02/10/17 23:22 Dose: 1 ea - Labs Labs: 02/13/17 06:28 02/13/17 06:30 PT 13.4 SECONDS (9.7-12.2) H 02/11/17 10:50 INR 1.2 02/11/17 10:50 APTT 64 SECONDS (21-34) H D 02/12/17 07:48
[2017-02-14 08:38] VITALS: RESP 20
[2017-02-14] MEDS: Metoprolol Succinate 25 mg XL Tab PO SCH (09:26)
--- NOTE | 2017-02-14 15:39 | CP.PCM.PN ---
Subjective - Date & Time of Evaluation Date of Evaluation: 02/14/17 Time of Evaluation: 09:40 - Subjective Subjective: clinically same Objective - Vital Signs/Intake and Output Vital Signs (last 24 hours): Temp Pulse Resp BP Pulse Ox 97.5 F L 69 20 131/86 96 02/14/17 08:37 02/14/17 12:00 02/14/17 08:37 02/14/17 09:23 02/14/17 08:37 Intake and Output: 02/14/17 02/14/17 06:59 18:59 Intake Total 100 Output Total 200 Balance -100 - Medications Medications: Current Medications Aspirin (Ecotrin) 81 mg PO DAILY [facility] Last Admin: 02/14/17 09:28 Dose: 81 mg Famotidine (Pepcid) 20 mg PO BID [facility] Last Admin: 02/14/17 09:28 Dose: 20 mg Indomethacin (Indocin) 25 mg PO TID [facility] Last Admin: 02/14/17 13:03 Dose: 25 mg Lisinopril (Zestril) 20 mg PO DAILY [facility] Last Admin: 02/14/17 09:26 Dose: 20 mg Metoprolol Succinate (Toprol Xl) 25 mg PO DAILY [facility] Last Admin: 02/14/17 09:26 Dose: 25 mg Morphine Sulfate (Morphine) 2 mg IVP Q4 PRN PRN Reason: Pain, moderate (4-7) Last Admin: 02/13/17 17:51 Dose: 2 mg Nitroglycerin (Nitrostat Sl Tab) 0.4 mg SL Q5M PRN PRN Reason: chest pain Last Admin: 02/12/17 23:56 Dose: 0.4 mg Rosuvastatin Calcium (Crestor) 10 mg PO HS [facility] Last Admin: 02/13/17 21:43 Dose: 10 mg Ticagrelor (Brilinta) 90 mg PO BID [facility] Last Admin: 02/14/17 09:26 Dose: 90 mg Vitamin A (Vitamin A & D Oint Ud Foilpak) 1 ea TOP Q6 PRN PRN Reason: Dry skin Last Admin: 02/10/17 23:22 Dose: 1 ea - Labs Labs: 02/13/17 06:28 02/13/17 06:30 PT 13.4 SECONDS (9.7-12.2) H 02/11/17 10:50 INR 1.2 02/11/17 10:50 APTT 64 SECONDS (21-34) H D 02/12/17 07:48
--- NOTE | 2017-02-14 15:57 | CP.PCM.PN ---
Subjective - Date & Time of Evaluation Date of Evaluation: 02/14/17 Time of Evaluation: 15:00 - Subjective Subjective: patient has no chest pain or dyspnea Objective - Vital Signs/Intake and Output Vital Signs (last 24 hours): Temp Pulse Resp BP Pulse Ox 97.5 F L 69 20 131/86 96 02/14/17 08:37 02/14/17 12:00 02/14/17 08:37 02/14/17 09:23 02/14/17 08:37 Intake and Output: 02/14/17 02/14/17 06:59 18:59 Intake Total 100 Output Total 200 Balance -100 - Medications Medications: Current Medications Aspirin (Ecotrin) 81 mg PO DAILY [facility] Last Admin: 02/14/17 09:28 Dose: 81 mg Famotidine (Pepcid) 20 mg PO BID [facility] Last Admin: 02/14/17 09:28 Dose: 20 mg Indomethacin (Indocin) 25 mg PO TID [facility] Last Admin: 02/14/17 13:03 Dose: 25 mg Lisinopril (Zestril) 20 mg PO DAILY [facility] Last Admin: 02/14/17 09:26 Dose: 20 mg Metoprolol Succinate (Toprol Xl) 25 mg PO DAILY [facility] Last Admin: 02/14/17 09:26 Dose: 25 mg Morphine Sulfate (Morphine) 2 mg IVP Q4 PRN PRN Reason: Pain, moderate (4-7) Last Admin: 02/13/17 17:51 Dose: 2 mg Nitroglycerin (Nitrostat Sl Tab) 0.4 mg SL Q5M PRN PRN Reason: chest pain Last Admin: 02/12/17 23:56 Dose: 0.4 mg Rosuvastatin Calcium (Crestor) 10 mg PO [facility] Last Admin: 02/13/17 21:43 Dose: 10 mg Ticagrelor (Brilinta) 90 mg PO BID [facility] Last Admin: 02/14/17 09:26 Dose: 90 mg Vitamin A (Vitamin A & D Oint Ud Foilpak) 1 ea TOP Q6 PRN PRN Reason: Dry skin Last Admin: 02/10/17 23:22 Dose: 1 ea - Labs Labs: 02/13/17 06:28 02/13/17 06:30 PT 13.4 SECONDS (9.7-12.2) H 02/11/17 10:50 INR 1.2 02/11/17 10:50 APTT 64 SECONDS (21-34) H D 02/12/17 07:48 - Constitutional Appears: Non-toxic - Head Exam Head Exam: NORMAL INSPECTION - Eye Exam Eye Exam: Normal appearance - ENT Exam ENT Exam: Mucous Membranes Moist - Neck Exam Neck Exam: Full ROM - Respiratory Exam Respiratory Exam: NORMAL BREATHING PATTERN - Cardiovascular Exam Cardiovascular Exam: REGULAR RHYTHM - GI/Abdominal Exam GI & Abdominal Exam: Normal Bowel Sounds - Rectal Exam Rectal Exam: Deferred - Extremities Exam Extremities Exam: absent: Pedal Edema - Back Exam Back Exam: NORMAL INSPECTION - Neurological Exam Neurological Exam: Alert - Psychiatric Exam Psychiatric exam: Normal Affect - Skin Skin Exam: Normal Color Assessment and Plan (1) NSTEMI (non-ST elevated myocardial infarction) Assessment & Plan: s/p PCI L Cx. ASA/Brilinta/ Toprol/statin. patient is stable for discharge. outpatient follow up. Status: Acute (2) HTN (hypertension) Assessment & Plan: blood pressure control Status: Acute
--- NOTE | 2017-02-14 15:57 | CP.PCM.PN ---
Subjective - Date & Time of Evaluation Date of Evaluation: 02/14/17 Time of Evaluation: 15:00 Objective - Vital Signs/Intake and Output Vital Signs (last 24 hours): Temp Pulse Resp BP Pulse Ox 97.5 F L 69 20 131/86 96 02/14/17 08:37 02/14/17 12:00 02/14/17 08:37 02/14/17 09:23 02/14/17 08:37 Intake and Output: 02/14/17 02/14/17 06:59 18:59 Intake Total 100 Output Total 200 Balance -100 - Medications Medications: Current Medications Aspirin (Ecotrin) 81 mg PO DAILY [facility] Last Admin: 02/14/17 09:28 Dose: 81 mg Famotidine (Pepcid) 20 mg PO BID [facility] Last Admin: 02/14/17 09:28 Dose: 20 mg Indomethacin (Indocin) 25 mg PO TID [facility] Last Admin: 02/14/17 13:03 Dose: 25 mg Lisinopril (Zestril) 20 mg PO DAILY [facility] Last Admin: 02/14/17 09:26 Dose: 20 mg Metoprolol Succinate (Toprol Xl) 25 mg PO DAILY [facility] Last Admin: 02/14/17 09:26 Dose: 25 mg Morphine Sulfate (Morphine) 2 mg IVP Q4 PRN PRN Reason: Pain, moderate (4-7) Last Admin: 02/13/17 17:51 Dose: 2 mg Nitroglycerin (Nitrostat Sl Tab) 0.4 mg SL Q5M PRN PRN Reason: chest pain Last Admin: 02/12/17 23:56 Dose: 0.4 mg Rosuvastatin Calcium (Crestor) 10 mg PO [facility] Last Admin: 02/13/17 21:43 Dose: 10 mg Ticagrelor (Brilinta) 90 mg PO BID [facility] Last Admin: 02/14/17 09:26 Dose: 90 mg Vitamin A (Vitamin A & D Oint Ud Foilpak) 1 ea TOP Q6 PRN PRN Reason: Dry skin Last Admin: 02/10/17 23:22 Dose: 1 ea - Labs Labs: 02/13/17 06:28 02/13/17 06:30 PT 13.4 SECONDS (9.7-12.2) H 02/11/17 10:50 INR 1.2 02/11/17 10:50 APTT 64 SECONDS (21-34) H D 02/12/17 07:48
[2017-02-14 16:14] VITALS: PULSE 74
[2017-02-14 16:15] VITALS: BP 123/73; TEMP 97.7; O2SAT 97
== END 2017-02-14 17:36 | disposition home or self-care (01) | DRG 281 ==
LOC: C.ER 14:48 → C.9E 17:32 → C.5S 19:36 → C.9I 02-11 10:06 → C.5S 02-13 21:03
PROVIDERS: ADMIT Internal Medicine Nephrology; ATTEND Internal Medicine Nephrology
DX: I21.4 Non-ST elevation (NSTEMI) myocardial infarction (principal); E87.1 Hypo-osmolality and hyponatremia; I11.9 Hypertensive heart disease without heart failure; Z68.41 Body mass index [BMI] 40.0-44.9, adult; E78.5 Hyperlipidemia, unspecified; Z79.82 Long term (current) use of aspirin; I51.7 Cardiomegaly; I25.10 Atherosclerotic heart disease of native coronary artery without angina pectoris